=== PATIENT | female | born 1990 | race Two or more races ===

== ENCOUNTER 2018-01-16 10:00 | Observation (INO) | payer MEDICAID ==
[2018-01-17] MEDS ORDERED: PREN-96 PO (13:22)
== END 2018-01-16 11:10 | disposition home or self-care (01) | DRG 566 ==
LOC: LDRP 10:00
PROVIDERS: ADMIT Obstetrics & Gynecology; ATTEND Obstetrics & Gynecology
DX: O62.9 Abnormality of forces of labor, unspecified (principal); O26.893 Other specified pregnancy related conditions, third trimester; N89.8 Other specified noninflammatory disorders of vagina; R10.9 Unspecified abdominal pain; Z3A.39 39 weeks gestation of pregnancy
CPT/HCPCS: 59025; 81002; G0378

== ENCOUNTER 2018-01-17 12:15 | Observation (INO) | payer MEDICAID ==
[2018-01-17] MEDS ORDERED: PREN-96 PO (13:22)
== END 2018-01-17 13:11 | disposition home or self-care (01) | DRG 566 ==
LOC: LDRP 12:15
PROVIDERS: ADMIT Obstetrics & Gynecology; ATTEND Obstetrics & Gynecology
DX: O36.8130 Decreased fetal movements, third trimester, not applicable or unspecified (principal); O26.893 Other specified pregnancy related conditions, third trimester; N89.8 Other specified noninflammatory disorders of vagina; O62.9 Abnormality of forces of labor, unspecified; Z3A.39 39 weeks gestation of pregnancy
CPT/HCPCS: 59025; 76818; 81002; G0378

== ENCOUNTER 2018-01-20 10:45 | Observation (INO) | payer MEDICAID ==
[~2018-01-20 10:45] MED LIST: PREN-96 PO
== END 2018-01-20 12:50 | disposition home or self-care (01) | DRG 566 ==
LOC: LDRP 10:45
PROVIDERS: ADMIT Specialist; ATTEND Specialist
DX: O48.0 Post-term pregnancy (principal); Z3A.40 40 weeks gestation of pregnancy
CPT/HCPCS: 59025; 76805; 76818; 81002; G0378

== ENCOUNTER 2018-01-22 05:52 | Inpatient (IN) | payer MEDICAID ==
[~2018-01-22] VITALS: Ht 154.9 cm; Wt 70.3 kg
[2018-01-22] MEDS: LACTATED RINGER'S 1,000 ML IV SCH ×2 (06:11→11:15)
[2018-01-22] MEDS ORDERED: WITCH HAZEL-GLYCERIN PAD TOP PRN (06:15)
[2018-01-22] MEDS ORDERED: DERMOPLAST 60ML BOTTLE TOP PRN (06:15)
[2018-01-22] MEDS ORDERED: PHISODERM TOP SOLN 240ML BTL TOP ONE (06:15)
[2018-01-22] MEDS ORDERED: LIDOCAINE 2% (LOCAL ANESTH.) PF 5ml SDV IJ ONE (06:15)
[2018-01-22] MEDS ORDERED: PROMETHAZINE HCL 25 MG/ML 1ML IV PRN (06:15)
[2018-01-22] MEDS ORDERED: NALBUPHINE HCL 10 MG/1ml INJECTION IV PRN (06:15)
[2018-01-22 06:52] LABS: Basophils # (auto) 0.1 uL; Basophils % (auto) 0.7 % (0.0-2.0); Eosinophils # (auto) 0.1 uL; Eosinophils % (auto) 1.1 % (0.0-7.0); Hematocrit 39.8 % (36.0-46.0); Hemoglobin 13.7 g/dL (12.2-16.2); Lymphocytes # (auto) 1.9 uL; Lymphocytes % (auto) 23.1 % (10.0-50.0); Mean Corpuscular Hemoglobin 33.6 pg (28.0-32.0); Mean Corpuscular Hgb Conc. 34.5 g/dL (32.0-36.0); Mean Corpuscular Volume 97.5 fL (80.0-100.0); Monocytes # (auto) 0.7 uL; Neutrophils # (auto) 5.3 uL; Neutrophils % (auto) 66.1 % (37.0-80.0); Nucleated Red Blood Cells % 0.1 %; Platelet Count (auto) 139 10^3/uL (140-450); Red Blood Cells 4.08 10^6/uL (4.0-5.20); Red Cell Distribution Width 12.9 % (11.8-14.3); White Blood Cell 8.1 10^3/uL (4.4-10.8)
[2018-01-22 07:15] LABS: INR 0.81 (0.9-1.15); Partial Thromboplastin Time 29.3 sec (23.78-33.04); Prothrombin Time 8.8 sec (9.27-12.13)
[2018-01-22 07:20] LABS: Albumin 2.6 g/dL (3.4-5.0); Bilirubin, Total 0.4 mg/dL (0.2-1.0); Total Protein 6.7 g/dL (6.4-8.2); Uric Acid 4.2 mg/dL (2.6-6.0)
[2018-01-22 08:55] LABS: Urine Bacteria NONE SEEN /hpf (None Seen); Urine Blood Negative /uL (Negative); Urine Specific Gravity 1.007 (1.001-1.035); Urine WBC <1 /hpf (0 - 5)
[2018-01-22] MEDS ORDERED: LACT. RINGERS/OXYTOCIN 20UNITS 1,000 ML IV SCH (09:22)
[2018-01-22] MEDS ORDERED: TERBUTALINE SULFATE 1 MG/ML 1ML VIAL SC ONE (09:30)
[2018-01-22] MEDS ORDERED: ACETAMINOPHEN 325 MG TAB PO PRN (15:00)
[2018-01-22] MEDS: DOCUSATE CALCIUM 240 MG CAP PO SCH (15:15)
[2018-01-22] MEDS ORDERED: DOCUSATE CALCIUM 240 MG CAP PO SCH (15:15)
[2018-01-22 19:00] VITALS: BP 93/55
[2018-01-22 23:00] VITALS: BP 96/55
[2018-01-23] MEDS: IBUPROFEN 600 MG TAB PO PRN ×2 (02:28→13:22)
[2018-01-23 02:57] VITALS: BP 96/64
[2018-01-23 07:15] VITALS: BP 106/66
[2018-01-23] MEDS: DOCUSATE CALCIUM 240 MG CAP PO SCH (10:19)
[2018-01-23 11:12] VITALS: BP 104/68
[2018-01-23 14:40] VITALS: BP 106/70
[2018-01-23 19:30] VITALS: BP 106/82
[2018-01-23 23:30] VITALS: BP 111/71
[2018-01-24] MEDS: IBUPROFEN 600 MG TAB PO PRN (00:15)
[2018-01-24 03:08] VITALS: BP 97/63
[2018-01-24 06:43] VITALS: BP 105/71
== END 2018-01-24 09:30 | disposition home or self-care (01) | DRG 560 ==
LOC: LDRP 05:52
PROVIDERS: ADMIT Specialist; ATTEND Specialist
PROC: 10E0XZZ Delivery of Products of Conception, External Approach (ICD-10-PCS; principal; 2018-01-22)
PROC: 0W8NXZZ Division of Female Perineum, External Approach (ICD-10-PCS; 2018-01-22)
DX: O42.02 Full-term premature rupture of membranes, onset of labor within 24 hours of rupture (principal); Z37.0 Single live birth; Z3A.40 40 weeks gestation of pregnancy
CPT/HCPCS: 36415; 59025; 59409; 80053; 81001; 84550; 85025; 85610; 85730; 86850; 86900; 86901; 96365; 96366; J2590

== ENCOUNTER 2021-02-20 11:00 | Observation (INO) | payer MEDICAID | END 2021-02-20 12:54 | disposition home or self-care (01) | LOC: LDRP 11:00 | PROVIDERS: ADMIT Obstetrics & Gynecology; ATTEND Obstetrics & Gynecology | DX: O24.419 Gestational diabetes mellitus in pregnancy, unspecified control (principal); Z3A.31 31 weeks gestation of pregnancy | CPT/HCPCS: 59025; 81002; 82948; 82962; 94760; G0378 ==

== ENCOUNTER 2021-02-27 14:09 | Observation (INO) | payer MEDICAID | END 2021-02-27 16:15 | disposition home or self-care (01) | LOC: LDRP 14:09 | PROVIDERS: ADMIT Specialist; ATTEND Specialist | DX: O24.419 Gestational diabetes mellitus in pregnancy, unspecified control (principal); Z3A.32 32 weeks gestation of pregnancy | CPT/HCPCS: 59025; 76818; 81002; 82948; 82962; 94760; G0378 ==

== ENCOUNTER 2021-03-06 10:50 | Observation (INO) | payer MEDICAID | END 2021-03-06 13:21 | disposition home or self-care (01) | LOC: LDRP 10:50 | PROVIDERS: ADMIT Obstetrics & Gynecology; ATTEND Obstetrics & Gynecology | DX: O24.419 Gestational diabetes mellitus in pregnancy, unspecified control (principal); Z3A.33 33 weeks gestation of pregnancy | CPT/HCPCS: 59025; 76818; 81002; 82962; 94760; G0378 ==

== ENCOUNTER 2021-03-13 10:20 | Observation (INO) | payer MEDICAID | END 2021-03-13 11:39 | disposition home or self-care (01) | LOC: LDRP 10:20 | PROVIDERS: ADMIT Obstetrics & Gynecology; ATTEND Obstetrics & Gynecology | DX: O24.419 Gestational diabetes mellitus in pregnancy, unspecified control (principal); Z3A.34 34 weeks gestation of pregnancy | CPT/HCPCS: 59025; 76818; 81002; 82948; 82962; G0378 ==

== ENCOUNTER 2021-03-20 09:17 | Observation (INO) | payer MEDICAID | END 2021-03-20 13:10 | disposition home or self-care (01) | LOC: LDRP 09:17 | PROVIDERS: ADMIT Specialist; ATTEND Specialist | DX: O24.419 Gestational diabetes mellitus in pregnancy, unspecified control (principal); O60.03 Preterm labor without delivery, third trimester; Z3A.35 35 weeks gestation of pregnancy | CPT/HCPCS: 59025; 76818; 81002; 82962; G0378 ==

== ENCOUNTER 2021-03-27 10:43 | Observation (INO) | payer MEDICAID | END 2021-03-27 12:40 | disposition home or self-care (01) | LOC: LDRP 10:43 | PROVIDERS: ADMIT Obstetrics & Gynecology; ATTEND Obstetrics & Gynecology | DX: O60.03 Preterm labor without delivery, third trimester (principal); Z3A.36 36 weeks gestation of pregnancy | CPT/HCPCS: 59025; 76818; 81002; 94760; G0378 ==

== ENCOUNTER 2021-04-03 10:58 | Observation (INO) | payer MEDICAID ==
[~2021-04-03] VITALS: Ht 152.4 cm; Wt 68.5 kg
== END 2021-04-03 13:25 | disposition home or self-care (01) ==
LOC: LDRP 10:58
PROVIDERS: ADMIT Obstetrics & Gynecology; ATTEND Obstetrics & Gynecology
DX: O24.419 Gestational diabetes mellitus in pregnancy, unspecified control (principal); O60.03 Preterm labor without delivery, third trimester; Z3A.37 37 weeks gestation of pregnancy
CPT/HCPCS: 59025; 76818; 81002; 82948; 82962; G0378

== ENCOUNTER 2021-04-10 11:30 | Observation (INO) | payer MEDICAID ==
[~2021-04-10] VITALS: Ht 152.4 cm; Wt 68.9 kg
== END 2021-04-10 13:36 | disposition home or self-care (01) ==
LOC: LDRP 11:30
PROVIDERS: ADMIT Obstetrics & Gynecology; ATTEND Obstetrics & Gynecology
DX: O24.419 Gestational diabetes mellitus in pregnancy, unspecified control (principal); Z3A.38 38 weeks gestation of pregnancy
CPT/HCPCS: 59025; 76818; 81002; 82962; 94760; G0378

== ENCOUNTER 2021-04-14 21:50 | Observation (INO) | payer MEDICAID | END 2021-04-14 23:09 | disposition home or self-care (01) | LOC: LDRP 21:50 → UNDOADMOB 21:50 → LDRP 22:05 | PROVIDERS: ADMIT Obstetrics & Gynecology; ATTEND Obstetrics & Gynecology | DX: O62.9 Abnormality of forces of labor, unspecified (principal); O24.419 Gestational diabetes mellitus in pregnancy, unspecified control; Z3A.39 39 weeks gestation of pregnancy | CPT/HCPCS: 59025; 81002; 82948; 82962; 94760; G0378; G0379 ==

== ENCOUNTER 2021-04-15 08:24 | Inpatient (IN) | payer MEDICAID ==
[2021-04-15] MEDS ORDERED: DERMOPLAST 60ML BOTTLE TOP PRN (08:45)
[2021-04-15] MEDS ORDERED: PROMETHAZINE HCL 25 MG/ML 1ML IV PRN (08:45)
[2021-04-15] MEDS ORDERED: BUTORPHANOL TARTRATE 2 MG/1 ML VIAL IV PRN ×2 (08:45)
[2021-04-15] MEDS ORDERED: LACTATED RINGER'S 1,000 ML IV SCH ×2 (08:45→09:15)
[2021-04-15] MEDS ORDERED: LIDOCAINE 2%HCL (LOCAL ANESTH.) INJ 20ML MDV IJ PRN (08:45)
[2021-04-15] MEDS ORDERED: LACT. RINGERS/OXYTOCIN 20UNITS 500 ML IV ONE ×2 (09:30→10:00)
[2021-04-15 09:49] LABS: Basophils # (auto) 0 10 ^3/uL (0-0.2); Basophils % (auto) 0.3 % (0.0-2.0); Eosinophils # (auto) 0 10 ^3/uL (0-0.8); Eosinophils % (auto) 0.2 % (0.0-7.0); Hematocrit 41.1 % (36.0-46.0); Hemoglobin 14.2 g/dL (12.2-16.2); Lymphocytes # (auto) 1.4 10 ^3/uL (0.4-5.4); Lymphocytes % (auto) 11.3 % (10.0-50.0); Mean Corpuscular Hemoglobin 32.5 pg (28.0-32.0); Mean Corpuscular Hgb Conc. 34.7 g/dL (32.0-36.0); Mean Corpuscular Volume 93.8 fL (80.0-100.0); Monocytes # (auto) 0.6 10 ^3/uL (0-1.3); Monocytes % (auto) 5.2 % (0.0-12.0); Neutrophils # (auto) 10.4 10 ^3/uL (1.6-8.6); Nucleated Red Blood Cells % 0.1 %; Red Blood Cells 4.38 10^6/uL (4.0-5.20); Red Cell Distribution Width 12.7 % (11.8-14.3); White Blood Cell 12.5 10^3/uL (4.4-10.8)
[2021-04-15 09:52] LABS: Urine Bacteria NONE SEEN /hpf (None Seen); Urine Blood 2+ /uL (Negative); Urine Specific Gravity 1.022 (1.001-1.035); Urine WBC 54 /hpf (0 - 5)
[2021-04-15 10:07] LABS: Albumin 2.7 g/dL (3.4-5.0); Calcium 9.5 mg/dL (8.5-10.1); Potassium 3.9 mmol/L (3.5-5.1)
[2021-04-15 10:12] LABS: BUN/Creatinine Ratio 18.1; Bilirubin, Total 0.4 mg/dL (0.2-1.0); INR 0.9 (0.9-1.15); Partial Thromboplastin Time 27.3 sec (23.6-33.0); Total Protein 7.4 g/dL (6.4-8.2)
[2021-04-15 10:12] LABS: Alcohol, Urine < 3.0 mg/dL (0-10); Amphetamine Screen, Urine NEGATIVE (NEGATIVE); Barbiturate Scree,Urine NEGATIVE (NEGATIVE); Benzodiazephine Screen, Urine NEGATIVE (NEGATIVE); Cannabinoid Screen, Urine NEGATIVE (NEGATIVE); Cocaine Screen, Urine NEGATIVE (NEGATIVE); Opiate Scree,Urine NEGATIVE (NEGATIVE); Phencyclidine Screen, Urine NEGATIVE (NEGATIVE)
[2021-04-15] MEDS ORDERED: ACETAMINOPHEN 325 MG TAB PO PRN (12:30)
[2021-04-15] MEDS: IBUPROFEN 600 MG TAB PO PRN ×2 (13:26→21:39)
[2021-04-15 14:58] VITALS: BP 107/70
[2021-04-15] MEDS: PHISODERM TOP SOLN 240ML BTL TOP PRN (17:39)
[2021-04-15] MEDS: WITCH HAZEL-GLYCERIN PAD TOP PRN (17:40)
[2021-04-15 19:18] VITALS: BP 104/64
[2021-04-15 22:56] VITALS: BP 102/62
[2021-04-16] MEDS: IBUPROFEN 600 MG TAB PO PRN ×3 (02:54→14:18)
[2021-04-16 02:56] VITALS: BP 93/50
[2021-04-16 06:30] VITALS: BP 101/63
[2021-04-16 07:07] LABS: RPR Non Reactive (Non Reactive)
[2021-04-16 11:14] VITALS: BP 115/72
[2021-04-16] MEDS: PHISODERM TOP SOLN 240ML BTL TOP PRN (14:19)
[2021-04-16] MEDS: WITCH HAZEL-GLYCERIN PAD TOP PRN (14:19)
[2021-04-16 14:30] VITALS: BP 108/64
== END 2021-04-16 15:00 | disposition home or self-care (01) | DRG 560 ==
LOC: LDRP 08:24 → OBSVTOIN 08:28 → LDRP 08:30
PROVIDERS: ADMIT Obstetrics & Gynecology; ATTEND Obstetrics & Gynecology
PROC: 10E0XZZ Delivery of Products of Conception, External Approach (ICD-10-PCS; principal; 2021-04-15)
PROC: 0KQM0ZZ Repair Perineum Muscle, Open Approach (ICD-10-PCS; 2021-04-15)
DX: O70.1 Second degree perineal laceration during delivery (principal); Z37.0 Single live birth; Z20.822 Contact with and (suspected) exposure to COVID-19; Z3A.39 39 weeks gestation of pregnancy
CPT/HCPCS: 36415; 59025; 59409; 80053; 80307; 81001; 81002; 82948; 82962; 85025; 85610; 85730; 86592; 86850; 86900; 86901; 87426; 94760; 96360; 96361; 96365; 96366; G0378; J2590

== ENCOUNTER → 2023-03-30 | Outpatient (CLI) | payer MEDICAID ==
[2023-03-30 11:41] LABS: Basophils # (auto) 0 10 ^3/uL (0-0.2); Basophils % (auto) 0.4 % (0.0-2.0); Eosinophils # (auto) 0.1 10 ^3/uL (0-0.8); Eosinophils % (auto) 1.7 % (0.0-7.0); Hematocrit 41.7 % (36.0-46.0); Hemoglobin 14.1 g/dL (12.2-16.2); Lymphocytes # (auto) 1.6 10 ^3/uL (0.4-5.4); Mean Corpuscular Hemoglobin 31.4 pg (28.0-32.0); Mean Corpuscular Hgb Conc. 33.8 g/dL (32.0-36.0); Mean Corpuscular Volume 92.8 fL (80.0-100.0); Monocytes # (auto) 0.4 10 ^3/uL (0-1.3); Monocytes % (auto) 5.4 % (0.0-12.0); Neutrophils # (auto) 5.4 10 ^3/uL (1.6-8.6); Neutrophils % (auto) 71.5 % (37.0-80.0); Red Cell Distribution Width 12.2 % (11.8-14.3); White Blood Cell 7.5 10^3/uL (4.4-10.8)
[2023-03-30 13:27] LABS: Alcohol, Urine < 3.0 mg/dL (0-10); Amphetamine Screen, Urine NEGATIVE (NEGATIVE); Barbiturate Scree,Urine NEGATIVE (NEGATIVE); Benzodiazephine Screen, Urine NEGATIVE (NEGATIVE); Cannabinoid Screen, Urine NEGATIVE (NEGATIVE)
[2023-03-30 13:49] LABS: Cocaine Screen, Urine NEGATIVE (NEGATIVE); Opiate Scree,Urine NEGATIVE (NEGATIVE); Phencyclidine Screen, Urine NEGATIVE (NEGATIVE)
[2023-03-31 06:06] LABS: RPR Non Reactive (Non Reactive)
[2023-03-31 10:06] LABS: Treponema Pallidum Ab LC Non Reactive (Non Reactive)
[2023-04-01 05:08] LABS: Chlamydia Trachomatis, NAA Negative (Negative); Neisseria gonorrhoeae, NAA Negative (Negative)
[2023-04-01 11:07] LABS: QuantiFERON-TB Gold Plus Negative (Negative)
[2023-04-01 20:06] LABS: Treponema pallidum Ab (FTA-Ab) Non Reactive (Non Reactive)
== END | disposition home or self-care (01) ==
LOC: LAB 10:30
PROVIDERS: ATTEND Obstetrics & Gynecology
DX: Z34.80 Encounter for supervision of other normal pregnancy, unspecified trimester (principal); Z31.430 Encounter of female for testing for genetic disease carrier status for procreative management; N39.0 Urinary tract infection, site not specified; Z20.1 Contact with and (suspected) exposure to tuberculosis; G56.00 Carpal tunnel syndrome, unspecified upper limb; Z3A.00 Weeks of gestation of pregnancy not specified
CPT/HCPCS: 36415; 80307; 83036; 84112; 84144; 84702; 85025; 86592; 86703; 86762; 86850; 86900; 86901; 87086; 87340

== ENCOUNTER → 2023-08-13 | Outpatient (CLI) | payer MEDICAID ==
[2023-08-13 10:45] LABS: Basophils # (auto) 0 10 ^3/uL (0-0.2); Basophils % (auto) 0.4 % (0.0-2.0); Eosinophils # (auto) 0.2 10 ^3/uL (0-0.8); Eosinophils % (auto) 2.1 % (0.0-7.0); Hematocrit 41.3 % (36.0-46.0); Lymphocytes # (auto) 1.5 10 ^3/uL (0.4-5.4); Lymphocytes % (auto) 19.1 % (10.0-50.0); Mean Corpuscular Hemoglobin 31.8 pg (28.0-32.0); Mean Corpuscular Volume 93.5 fL (80.0-100.0); Monocytes # (auto) 0.6 10 ^3/uL (0-1.3); Monocytes % (auto) 7.2 % (0.0-12.0); Neutrophils # (auto) 5.6 10 ^3/uL (1.6-8.6); Neutrophils % (auto) 71.2 % (37.0-80.0); Red Blood Cells 4.41 10^6/uL (4.0-5.20); Red Cell Distribution Width 12.3 % (11.8-14.3); White Blood Cell 7.9 10^3/uL (4.4-10.8)
[2023-08-14 07:06] LABS: Treponema Pallidum Ab LC Non Reactive (Non Reactive)
[2023-08-14 09:06] LABS: RPR Non Reactive (Non Reactive)
== END | disposition home or self-care (01) ==
LOC: LAB 10:26
PROVIDERS: ATTEND Obstetrics & Gynecology
DX: Z34.80 Encounter for supervision of other normal pregnancy, unspecified trimester (principal); Z3A.00 Weeks of gestation of pregnancy not specified
CPT/HCPCS: 36415; 84112; 85025; 86592

== ENCOUNTER 2023-08-16 21:37 | Observation (INO) | payer MEDICAID ==
[~2023-08-16] VITALS: Ht 154.9 cm; Wt 69.4 kg
[2023-08-16 22:47] LABS: Fern Testing Negative
== END 2023-08-16 23:19 | disposition home or self-care (01) ==
LOC: LDRP 21:37
PROVIDERS: ADMIT Obstetrics & Gynecology; ATTEND Obstetrics & Gynecology
DX: O42.913 Preterm premature rupture of membranes, unspecified as to length of time between rupture and onset of labor, third trimester (principal); O26.893 Other specified pregnancy related conditions, third trimester; R10.30 Lower abdominal pain, unspecified; Z3A.35 35 weeks gestation of pregnancy
CPT/HCPCS: 59025; 76805; 81002; 84112; 94760; G0378; Q0114

== ENCOUNTER 2023-09-14 11:42 | Inpatient (IN) | payer MEDICAID ==
[~2023-09-14] VITALS: Ht 154.9 cm; Wt 70.8 kg
[2023-09-14] MEDS ORDERED: BUTORPHANOL TARTRATE 2 MG/1 ML VIAL IV PRN ×2 (14:30)
[2023-09-14] MEDS ORDERED: PENICILLIN G POT 5MIL/D5 50ML 50 ML IV ONE (14:30)
[2023-09-14] MEDS ORDERED: DERMOPLAST 60ML BOTTLE TOP PRN (14:30)
[2023-09-14] MEDS ORDERED: WITCH HAZEL-GLYCERIN PAD TOP PRN (14:30)
[2023-09-14] MEDS ORDERED: LIDOCAINE 2%HCL (LOCAL ANESTH.) INJ 20ML MDV IJ PRN (14:30)
[2023-09-14] MEDS ORDERED: PHISODERM TOP SOLN 240ML BTL TOP PRN (14:30)
[2023-09-14] MEDS ORDERED: PROMETHAZINE HCL 25 MG/ML 1ML IV PRN (14:30)
[2023-09-14] MEDS ORDERED: LACT. RINGERS/OXYTOCIN 20UNITS 500 ML IV ONE ×2 (14:45→15:15)
[2023-09-14 15:18] LABS: Urine Epithelial Cast None Seen /hpf (<5)
[2023-09-14 15:19] LABS: Basophils # (auto) 0 10 ^3/uL (0-0.2); Basophils % (auto) 0.4 % (0.0-2.0); Eosinophils # (auto) 0.1 10 ^3/uL (0-0.8); Eosinophils % (auto) 0.9 % (0.0-7.0); Hematocrit 40.6 % (36.0-46.0); Hemoglobin 13.7 g/dL (12.2-16.2); Lymphocytes # (auto) 1.9 10 ^3/uL (0.4-5.4); Mean Corpuscular Hemoglobin 31.6 pg (28.0-32.0); Mean Corpuscular Hgb Conc. 33.7 g/dL (32.0-36.0); Mean Corpuscular Volume 93.7 fL (80.0-100.0); Monocytes # (auto) 0.4 10 ^3/uL (0-1.3); Neutrophils # (auto) 4.9 10 ^3/uL (1.6-8.6); Neutrophils % (auto) 66.7 % (37.0-80.0); Nucleated Red Blood Cells % 0.1 %; Red Blood Cells 4.34 10^6/uL (4.0-5.20); Red Cell Distribution Width 13.1 % (11.8-14.3); White Blood Cell 7.3 10^3/uL (4.4-10.8)
[2023-09-14 15:35] LABS: Alanine Aminotransferase 17 U/L (7-40); Albumin 3.9 g/dL (3.2-4.8); Alkaline Phosphatase 198 U/L (46-116); Anion Gap 8 (5-15); Aspartate Aminotransferase 22 U/L (13-40); BUN/Creatinine Ratio 14.5 (10.0-20.0); Blood Urea Nitrogen 8 mg/dL (9-23); Calcium 9.3 mg/dL (8.5-10.1); Carbon Dioxide 20 mmol/L (20-30); Chloride 108 mmol/L (98-107); Glucose 75 mg/dL (74-106); Potassium 3.7 mmol/L (3.5-5.1); Sodium 136 mmol/L (136-145)
[2023-09-14 15:36] LABS: Bilirubin, Total 0.5 mg/dL (0.2-1.0); Total Protein 6.5 g/dL (5.7-8.2)
[2023-09-14 15:39] LABS: Amphetamine Screen, Urine Neg (NEGATIVE); Barbiturate Scree,Urine Neg (NEGATIVE); Benzodiazephine Screen, Urine Neg (NEGATIVE); Cocaine Screen, Urine Neg (NEGATIVE)
[2023-09-14 15:40] LABS: Cannabinoid Screen, Urine Neg (NEGATIVE); Opiate Scree,Urine Neg (NEGATIVE); Phencyclidine Screen, Urine Neg (NEGATIVE)
[2023-09-14 15:44] LABS: INR 0.91 (0.9-1.15); Prothrombin Time 9.6 sec (9.3-11.8)
[2023-09-14 15:47] LABS: Urine Bacteria MANY /hpf (None Seen); Urine Blood Negative /uL (Negative); Urine Clarity Clear (Clear); Urine Color Colorless (Yellow); Urine Protein, UAD Negative (Negative); Urine Specific Gravity 1.006 (1.001-1.035); Urine Urobilinogen Normal (Negative); Urine WBC 1 /hpf (0 - 5); Urine pH 6.5 (5.0-8.0)
[2023-09-14] MEDS: LACTATED RINGER'S 1,000 ML IV SCH ×2 (17:51→22:44)
[2023-09-14] MEDS ORDERED: PENICILLIN G POTASSIUM 2,500,000 UNITS in D5W 5% 50 ML IV SCH (18:30)
[2023-09-14] MEDS: miSOPROStol 50 MCG per PRE-CUT 1/2 TAB PO PRN (19:02)
[2023-09-14] MEDS ORDERED: CARBOPROST TROMETHAMINE 250 MCG/1ML VIAL IM PRN (22:15)
[2023-09-14] MEDS ORDERED: MINERAL OIL TOPICAL 10ml TOP PRN (22:15)
[2023-09-14] MEDS ORDERED: diphenhdrAMINE HCL 50 MG/1 ML VL IV PRN (22:15)
[2023-09-14] MEDS ORDERED: URSODIOL 300 MG CAP PO SCH (22:15)
[2023-09-14] MEDS ORDERED: miSOPROStol 100 mcg TAB SL PRN (22:15)
[2023-09-14] MEDS ORDERED: fentaNYL CITRATE 100 MCG/2 ML VL IV PRN (22:15)
[2023-09-14] MEDS ORDERED: ONDANSETRON HCL 4 MG/2 ML VIAL IV PRN (22:15)
[2023-09-14] MEDS ORDERED: ACETAMINOPHEN 325 MG TAB PO PRN (22:15)
[2023-09-14] MEDS ORDERED: PROMETHAZINE HCL 25 MG/ML 1ML IM PRN (22:15)
[2023-09-14] MEDS ORDERED: METHYLERGONOVINE MALEATE 0.2 MG/ML AMP IM PRN (22:15)
[2023-09-14] MEDS ORDERED: TRANEXAMIC ACID 1,000 MG in SODIUM CHL 0.9% 100 ML IV PRN (22:15)
[2023-09-15] MEDS ORDERED: DIPHENOXYLATE W/ATROPINE 2.5 MG TAB PO PRN
[2023-09-15] MEDS: miSOPROStol 50 MCG per PRE-CUT 1/2 TAB PO PRN (00:36)
[2023-09-15] MEDS ORDERED: ePHEDrine SULFATE 50 MG/ML AMP IV ONE (01:45)
[2023-09-15] MEDS ORDERED: LACTATED RINGER'S 1,000 ML IV ONE (01:45)
[2023-09-15] MEDS ORDERED: ROPIVACAINE HCL 100 ML ONE (01:47)
[2023-09-15] MEDS: LACTATED RINGER'S 1,000 ML IV SCH (02:22)
[2023-09-15] MEDS ORDERED: PENICILLIN G POTASSIUM 2,500,000 UNITS in D5W 5% 50 ML IV SCH (06:50)
[2023-09-15 08:06] LABS: RPR Non Reactive (Non Reactive)
[2023-09-15] MEDS ORDERED: ACETAMINOPHEN 325 MG TAB PO PRN (08:15)
[2023-09-15] MEDS ORDERED: LEVE500T40 PO (10:45)
[2023-09-15] MEDS ORDERED: FLUO60TA7 PO (10:45)
[2023-09-15 11:00] VITALS: BP 112/70; PULSE 69; RESP 16; TEMP 98; O2SAT 96
[2023-09-15 15:00] VITALS: BP 102/93; PULSE 82; RESP 16; TEMP 98.7; O2SAT 96
[2023-09-15] MEDS: IBUPROFEN 600 MG TAB PO PRN (18:50)
[2023-09-15 19:13] VITALS: BP 101/59; PULSE 93; RESP 16; TEMP 98.5; O2SAT 95
[2023-09-15 23:25] VITALS: BP 119/73; PULSE 82; RESP 16; TEMP 98.4; O2SAT 95
[2023-09-16] VITALS (7 sets, daily range): BP systolic 101–113; BP diastolic 71–80; PULSE 78–96; RESP 13–18; TEMP 97.9–98.4; O2SAT 95–97
[2023-09-16] MEDS ORDERED: DOCU-94 PO (00:01)
[2023-09-16] MEDS ORDERED: IBU600T PO (00:01)
[2023-09-16] MEDS ORDERED: DOCUSATE SOD 100 MG CAP PO ONE (00:45)
[2023-09-16] MEDS: IBUPROFEN 600 MG TAB PO PRN (07:54)
[2023-09-17 03:00] VITALS: BP 106/67; PULSE 74; RESP 18; TEMP 97.7; O2SAT 97
[2023-09-17] MEDS: IBUPROFEN 600 MG TAB PO PRN (04:41)
[2023-09-17 07:19] VITALS: BP 106/72; PULSE 72; RESP 17; TEMP 98.3; O2SAT 97
[2023-09-17 10:55] VITALS: BP 110/74; PULSE 70; RESP 17; TEMP 98.3; O2SAT 97
[2023-09-17 14:41] VITALS: BP 104/71; PULSE 73; RESP 17; TEMP 98.4; O2SAT 96
[2023-09-17] MEDS ORDERED: ACETAMINOPHEN IV 1000 MG/100ML (10MG/ML) IV PRN (18:30)
[2023-09-17 19:06] LABS: Treponema pallidum Ab (FTA-Ab) Non Reactive (Non Reactive)
[2023-09-17 19:10] VITALS: BP 104/69; PULSE 81; RESP 16; TEMP 98.6; O2SAT 96
[2023-09-17 20:15] VITALS: BP 104/69; PULSE 81; RESP 16; TEMP 98.6; O2SAT 96
== END 2023-09-17 20:05 | disposition home or self-care (01) | DRG 560 ==
LOC: LDRP 11:42 → UNDOADMOB 11:42 → LDRP 12:01 → OBSVTOIN 14:25
PROVIDERS: ADMIT Obstetrics & Gynecology; ATTEND Nurse Practitioner Women's Health
PROC: 0KQM0ZZ Repair Perineum Muscle, Open Approach (ICD-10-PCS; principal; 2023-09-15)
PROC: 10E0XZZ Delivery of Products of Conception, External Approach (ICD-10-PCS; 2023-09-15)
PROC: 3E0R3BZ Introduction of Anesthetic Agent into Spinal Canal, Percutaneous Approach (ICD-10-PCS; 2023-09-15)
PROC: 00HU33Z Insertion of Infusion Device into Spinal Canal, Percutaneous Approach (ICD-10-PCS; 2023-09-15)
DX: O26.643 Intrahepatic cholestasis of pregnancy, third trimester (principal); Z37.0 Single live birth; K76.89 Other specified diseases of liver; O36.8130 Decreased fetal movements, third trimester, not applicable or unspecified; O70.1 Second degree perineal laceration during delivery; O99.824 Streptococcus B carrier state complicating childbirth; Z3A.40 40 weeks gestation of pregnancy
CPT/HCPCS: 36415; 59409; 62282; 76818; 80053; 80307; 81001; 85025; 85610; 85730; 86592; 86850; 86900; 86901; 94760; 96360; 96361; 96365; 96366; G0378; J2540; J2590; J7060

== ENCOUNTER → 2024-11-22 | Outpatient (CLI) | payer MEDICAID ==
[~2024-11-22] MED LIST changes: +DOCU-94 PO; +FLUO60TA7 PO; +IBU600T PO; +LEVE500T40 PO
[2024-11-22 12:04] LABS: Basophils # (auto) 0.1 10 ^3/uL (0-0.2); Basophils % (auto) 0.7 % (0.0-2.0); Eosinophils # (auto) 0.1 10 ^3/uL (0-0.8); Eosinophils % (auto) 1.2 % (0.0-7.0); Hematocrit 43.1 % (36.0-46.0); Hemoglobin 14.9 g/dL (12.2-16.2); Lymphocytes % (auto) 26.8 % (10.0-50.0); Mean Corpuscular Hgb Conc. 34.6 g/dL (32.0-36.0); Mean Corpuscular Volume 92.3 fL (80.0-100.0); Monocytes # (auto) 0.4 10 ^3/uL (0-1.3); Monocytes % (auto) 4.8 % (0.0-12.0); Neutrophils % (auto) 66.5 % (37.0-80.0); Nucleated Red Blood Cells % 0.1 %; Platelet Count (auto) 212 10^3/uL (140-450); Red Blood Cells 4.67 10^6/uL (4.0-5.20); Red Cell Distribution Width 12.4 % (11.8-14.3); White Blood Cell 7.5 10^3/uL (4.4-10.8)
[2024-11-22 12:29] LABS: Alanine Aminotransferase 25 U/L (7-40); Alkaline Phosphatase 82 U/L (46-116); Anion Gap 10 (5-15); Aspartate Aminotransferase 18 U/L (13-40); BUN/Creatinine Ratio 12.3 (10.0-20.0); Calcium 10.2 mg/dL (8.7-10.4); Carbon Dioxide 23 mmol/L (20-31); Chloride 103 mmol/L (98-107); Cholesterol 185 mg/dL (< 200); Glucose 85 mg/dL (74-106); LDL Cholesterol 93 mg/dL (< 100); Potassium 3.8 mmol/L (3.5-5.1); Sodium 136 mmol/L (136-145); Total Protein 7.7 g/dL (5.7-8.2); Triglycerides 91 mg/dL (< 150)
[2024-11-22 12:30] LABS: Amphetamine Screen, Urine Neg (NEGATIVE); Barbiturate Scree,Urine Neg (NEGATIVE); Benzodiazephine Screen, Urine Neg (NEGATIVE); Bilirubin, Total 0.5 mg/dL (0.2-1.0); Opiate Scree,Urine Neg (NEGATIVE); Phencyclidine Screen, Urine Neg (NEGATIVE)
[2024-11-22 12:31] LABS: Albumin 4.9 g/dL (3.2-4.8); Blood Urea Nitrogen 7 mg/dL (9-23); Cannabinoid Screen, Urine Neg (NEGATIVE); Cocaine Screen, Urine Neg (NEGATIVE); HDL Cholesterol 76 mg/dL (40-59); Thyroid Stimulating Hormone 0.6 uIU/mL (0.55-4.78)
[2024-11-22 13:02] LABS: Beta HCG, Quantitative 43744.6 mIU/mL (1.5-4.2)
[2024-11-23 08:07] LABS: Varicella Zoster IgG Antibody Non Reactive (Non Reactive)
[2024-11-23 23:07] LABS: Chlamydia Trachomatis, NAA Negative (Negative); Neisseria gonorrhoeae, NAA Negative (Negative)
== END | disposition home or self-care (01) ==
LOC: LAB 11:26
PROVIDERS: ATTEND Obstetrics & Gynecology
DX: O23.40 Unspecified infection of urinary tract in pregnancy, unspecified trimester (principal); Z31.430 Encounter of female for testing for genetic disease carrier status for procreative management; Z36.0 Encounter for antenatal screening for chromosomal anomalies; N39.0 Urinary tract infection, site not specified; Z3A.00 Weeks of gestation of pregnancy not specified
CPT/HCPCS: 36415; 80053; 80061; 80307; 83036; 84439; 84443; 84702; 85025; 86703; 86762; 86780; 86787; 86850; 86900; 86901; 87086; 87340; 87902

== ENCOUNTER → 2025-05-02 | Outpatient (CLI) | payer MEDICAID ==
[2025-05-02 11:41] LABS: Hematocrit 39.4 % (36.0-46.0); Hemoglobin 13.6 g/dL (12.2-16.2); Mean Corpuscular Hemoglobin 32.0 pg (28.0-32.0); Mean Corpuscular Volume 92.6 fL (80.0-100.0); Nucleated Red Blood Cells % 0.0 %
[2025-05-04 05:08] LABS: Chlamydia Trachomatis, NAA Negative (Negative); Neisseria gonorrhoeae, NAA Negative (Negative)
== END | disposition home or self-care (01) ==
LOC: LAB 11:12
PROVIDERS: ATTEND Obstetrics & Gynecology
DX: Z34.80 Encounter for supervision of other normal pregnancy, unspecified trimester (principal)
CPT/HCPCS: 36415; 85025; 86780

== ENCOUNTER 2025-05-08 10:15 | Observation (INO) | payer MEDICAID ==
--- NOTE | 2025-05-08 12:02 | DVH ---
CLINICAL HISTORY: Decreased movement. Fall injury. COMPARISON: US BIOPHYSICAL PROFILE on DOS: 09/14/23, BIOPHYSICAL PROFILE on DOS: 04/10/21, BIOPHYSICAL PROFILE on DOS: 04/03/21 TECHNIQUE: biophysical profile was performed. Transabdominal sonographic images of the fetus we re obtained. Transvaginal imaging was performed to evaluate the cervix. FINDINGS: The fetus is in cephalic position. heart rate measures 135 BPM. Amniotic fluid index measures 13.1 cm. The placenta is anterior in position without visualized evidence for previa or abru ption. There is a fluid collection along the periphery of the mid placenta measuring up to 5.1 x 0.7 x 3.0 cm with mild vascularity near its periphery. There is fluid collection within the mid placenta measuring 1.5 x 0.5 x 1.6 cm, most likely placental Ross. Cervix appears closed on transvaginal imag ing with cervical length of 3.6 cm. BPP profile is an overall score of 8/8, with 2/2 points for breathing, with at least one episode of breathing over a 30 second duration during a 30 minute observation, 2/2 points for m ovements, with 3 or more discrete body or limb movements, 2/2 points for tone, with one or more episodes of extremity extension with return to flexion, or opening and closing of hand, and 2/ 2 points for amniotic fluid, with at least 1 pocket of amniotic fluid that measures 2 cm in 2 perpend icular planes. IMPRESSION: 1. BPP score of 8/8. 2. Cervix appears closed with cervical length of 3.6 cm. 3. Fluid collection along the anterior periphery of the mid placenta. Given the history of fall inju ry, can not exclude small hematoma hematoma in this location. The patient was not in pain at the time of the examination. Correlation with clinical findings and close clinical and imaging follow-up sae mmended. 4. Smaller fluid collection within the mid placenta, possibly a placental ross.
--- NOTE | 2025-05-08 17:23 | DVHDS2 ---
Physician Discharge Progress N Final Diagnosis: s/p fall on 05/07/25 at 1700 well being established Operations or Procedures: Operations or Procedures S: 34yo IUP@35.6wks presents to OB triage with c/o DFM after a fall on 05/07/25 at 1700. Pt did not land on her abdomen, she just slipped and feels like she pulled a groin muscle. Denies UCs/LOF/VB/MARTINEZ/vision changes/RUQ pain. PNC with Dr. Montero, uncomplicated. O: VSS NST reactive per RN No VB and abdomen soft per RN A: 34yo IUP@35.6wks well being established P: D/C home FKC/PTL/PreE precautions reviewed Dr. Montero consulted, aware of SONO results, agrees with POC. f/u with Dr. Montero as scheduled tmrw 05/09/25 in office. Other Interventions Other Interventions [place] [id number] Ph: [phone] DIAGNOSTIC IMAGING Diagnostic Imaging Report : [id number] Signed PATIENT: YUNG NEVAREZ ACCT: [id number] UNIT: [id number] : 1990 LOC: RP ROOM / BED: TRIAGE3 / A AGE / SEX: 34 / F ADM STATUS: DIS IN SERVICE 1019 ORDERING PHYSICIAN: PEARL WHEAT CNM PROCEDURE(s): BPP - BIOPHYSICAL PROFILE REASON: Decrease Movement/ Fall ORDER NUMBER(s): [id number], ACCESSION NUMBER(s): [id number] CLINICAL HISTORY: Decreased movement. Fall injury. COMPARISON: US BIOPHYSICAL PROFILE on DOS: 09/14/23, BIOPHYSICAL PROFILE on DOS: 04/10/21, BIOPHYSICAL PROFILE on DOS: 04/03/21 TECHNIQUE: biophysical profile was performed. Transabdominal sonographic images of the fetus were obtained. Transvaginal imaging was performed to evaluate the cervix. FINDINGS: The fetus is in cephalic position. heart rate measures 135 BPM. Amniotic fluid index measures 13.1 cm. The placenta is anterior in position without visualized evidence for previa or abruption. There is a fluid collection along the periphery of the mid placenta measuring up to 5.1 x 0.7 x 3.0 cm with mild vascularity near its periphery. There is fluid collection within the mid placenta measuring 1.5 x 0.5 x 1.6 cm, most likely placental Ross. Cervix appears closed on transvaginal imaging with cervical length of 3.6 cm. BPP profile is an overall score of 8/8, with 2/2 points for breathing, with at least one episode of breathing over a 30 second duration during a 30 minute observation, 2/2 points for movements, with 3 or more discrete body or limb movements, 2/2 points for tone, with one or more episodes of extremity extension with return to flexion, or opening and closing of hand, and 2/2 points for amniotic fluid, with at least 1 pocket of amniotic fluid that measures 2 cm in 2 perpendicular planes. IMPRESSION: 1. BPP score of 8/8. 2. Cervix appears closed with cervical length of 3.6 cm. 3. Fluid collection along the anterior periphery of the mid placenta. Given the history of fall injury, can not exclude small hematoma hematoma in this location. The patient was not in pain at the time of the examination. Correlation with clinical findings and close clinical and imaging follow-up recommended. 4. Smaller fluid collection within the mid placenta, possibly a placental ross. ATED BY: MACY HEARN DO DICTATED DATE/TIME: 05/08/25 1200 SIGNED BY: MACY HEARN DO SIGNED DATE/TIME: 05/08/25 1200 CC: Condition on Discharge: Stable Disposition: Home Discharge Instructions: Diet: Regular Activity: No Restrictions, As Tolerated Medications: see med list Follow Up Care: Specialist: f/u with Dr. Montero in office on 05/08/25 Discharge Statement: "Patient was advised to return to the ER or call 911 if any headaches, dizziness, shortness of breath, chest pain, abdominal pain, bleeding, fevers, or worsening of medical condition. Patient was counseled about treatment plan, medications, possible side effects, patientverbalized understanding. All questions were answered to the best of my ability. This discharge took greater then 30 minutes in planning, reviewing documentation, counseling the patient, and discussing with other team members." Visit Coding OBGYN Date of Service: May 08, 2025 Billing Provider: PEARL WHEAT CNM STOCKROOM ATTENDANT Common Visit Codes: [id number] OBS CARE (HIGH) STOCKROOM ATTENDANT Procedure Codes: 95454-66- NON-STRESS TEST PEARL WHEAT CNM May 08, 2025 17:23
== END 2025-05-08 11:56 | disposition home or self-care (01) ==
LOC: LDRP 10:15
PROVIDERS: ADMIT Obstetrics & Gynecology; ATTEND Obstetrics & Gynecology
DX: Z36.89 Encounter for other specified antenatal screening (principal); Z98.890 Other specified postprocedural states; W01.0XXA Fall on same level from slipping, tripping and stumbling without subsequent striking against object, initial encounter; Y93.89 Activity, other specified; Y92.89 Other specified places as the place of occurrence of the external cause; Y99.8 Other external cause status
CPT/HCPCS: 59025; 76817; 76819; 81002; 94760; G0378

== ENCOUNTER 2025-05-09 11:23 | Outpatient (CLI) | payer MEDICAID ==
[2025-05-09 11:46] LABS: Hematocrit 40.3 % (36.0-46.0); Hemoglobin 13.6 g/dL (12.2-16.2); Mean Corpuscular Hemoglobin 31.6 pg (28.0-32.0); Mean Corpuscular Volume 93.7 fL (80.0-100.0); Nucleated Red Blood Cells % 0.0 %
[2025-05-10 16:07] LABS: Chlamydia Trachomatis, NAA Negative (Negative); Neisseria gonorrhoeae, NAA Negative (Negative)
== END 2025-05-09 17:00 | disposition home or self-care (01) ==
LOC: LAB 11:23
PROVIDERS: ATTEND Obstetrics & Gynecology
DX: Z34.80 Encounter for supervision of other normal pregnancy, unspecified trimester (principal); Z72.51 High risk heterosexual behavior; Z3A.00 Weeks of gestation of pregnancy not specified
CPT/HCPCS: 36415; 85025; 86780

== ENCOUNTER 2025-05-18 11:05 | Observation (INO) | payer MEDICAID ==
[2025-05-18 11:50] LABS: Hematocrit 40.4 % (36.0-46.0); Hemoglobin 13.9 g/dL (12.2-16.2); Mean Corpuscular Hemoglobin 32.0 pg (28.0-32.0); Mean Corpuscular Volume 93.0 fL (80.0-100.0); Nucleated Red Blood Cells % 0.0 %
[2025-05-18 12:08] LABS: Alanine Aminotransferase 100 U/L (7-40); Albumin 3.7 g/dL (3.2-4.8); Alkaline Phosphatase 254 U/L (46-116); Anion Gap 10 (5-15); BUN/Creatinine Ratio 13.0 (10.0-20.0); Bilirubin, Total 0.7 mg/dL (0.2-1.0); Blood Urea Nitrogen 9 mg/dL (9-23); Calcium 9.3 mg/dL (8.7-10.4); Carbon Dioxide 22 mmol/L (20-31); Chloride 106 mmol/L (98-107); Potassium 4.0 mmol/L (3.5-5.1); Sodium 138 mmol/L (136-145); Total Protein 6.3 g/dL (5.7-8.2)
--- NOTE | 2025-05-18 12:22 | DVH ---
BIOPHYSICAL PROFILE HISTORY: cholestasis TECHNIQUE: Multiple transabdominal real-time grayscale sonographic images through the gravid uterus o f the fetus with duplex doppler color flow and M-mode spectral analysis FINDINGS: BIOPHYSICAL PROFILE: breathing score: 2 movement score: 2 tone score: 2 Quantitative MAIA score: 2 (MAIA: 16.4 cm.) Total score: 8/8 Single live fetus in cephalic presentation. heart rate 146 beats per minute. Anterior placenta without previa or abruption Biophysical profile score 8/8 corresponding to an OZZIE of 06/06/25 IMPRESSION: Biophysical profile score: 8/8
[2025-05-18 12:26] LABS: Glucose 81 mg/dL (74-106)
[2025-05-18] MEDS ORDERED: URSO300C2 PO (12:44)
--- NOTE | 2025-05-18 13:32 | DVHDS2 ---
Physician Discharge Progress N Final Diagnosis: cholestasis 37wks Operations or Procedures: Operations or Procedures nst reactive reviwed,sono Condition on Discharge: Good Disposition: Home Discharge Instructions: Diet: Regular Activity: No Restrictions, As Tolerated Follow Up/Referral: IOL 05/19/25 at 0900 Medications: na Follow Up Care: Specialist: 1d for ind Discharge Statement: "Patient was advised to return to the ER or call 911 if any headaches, dizziness, shortness of breath, chest pain, abdominal pain, bleeding, fevers, or worsening of medical condition. Patient was counseled about treatment plan, medications, possible side effects, patientverbalized understanding. All questions were answered to the best of my ability. This discharge took greater then 30 minutes in planning, reviewing documentation, counseling the patient, and discussing with other team members." Visit Coding OBGYN Date of Service: May 18, 2025 Billing Provider: FERNIE MOSHER DO CHIEF LEARNING OFFICER Common Visit Codes: [id number] OBS CARE (HIGH) CHIEF LEARNING OFFICER Procedure Codes: 57806-25- NON-STRESS TEST FERNIE MOSHER DO May 18, 2025 13:32
== END 2025-05-18 12:53 | disposition home or self-care (01) ==
LOC: LDRP 11:05
PROVIDERS: ADMIT Obstetrics & Gynecology; ATTEND Obstetrics & Gynecology
DX: O26.643 Intrahepatic cholestasis of pregnancy, third trimester (principal); K83.1 Obstruction of bile duct; Z3A.37 37 weeks gestation of pregnancy; Z98.890 Other specified postprocedural states
CPT/HCPCS: 36415; 59025; 76819; 80053; 81002; 85025; 94760; G0378

== ENCOUNTER 2025-05-19 02:28 | Inpatient (IN) | payer MEDICAID ==
[~2025-05-19] VITALS: Ht 154.9 cm; Wt 68.0 kg
[~2025-05-19 02:28] MED LIST changes: +URSO300C2 PO
[2025-05-19] MEDS ORDERED: BUTORPHANOL TARTRATE 2 MG/1 ML VIAL IV PRN ×2 (07:30)
[2025-05-19] MEDS ORDERED: PENICILLIN G POT 5MIL/D5 50ML 50 ML IV ONE (07:30)
[2025-05-19] MEDS ORDERED: LIDOCAINE 2%HCL (LOCAL ANESTH.) INJ 20ML MDV IJ PRN (07:30)
[2025-05-19 08:13] LABS: Hematocrit 39.7 % (36.0-46.0); Hemoglobin 13.6 g/dL (12.2-16.2); Mean Corpuscular Hemoglobin 31.8 pg (28.0-32.0); Mean Corpuscular Volume 92.9 fL (80.0-100.0); Nucleated Red Blood Cells % 0.1 %
[2025-05-19 08:25] LABS: INR 0.86 (0.9-1.15); Partial Thromboplastin Time 27.5 SEC (24.5-34.5); Prothrombin Time 9.3 sec (9.3-11.8)
[2025-05-19 08:35] LABS: Albumin 3.9 g/dL (3.2-4.8); Anion Gap 12 (5-15); BUN/Creatinine Ratio 13.8 (10.0-20.0); Blood Urea Nitrogen 9 mg/dL (9-23); Calcium 9.1 mg/dL (8.7-10.4); Chloride 106 mmol/L (98-107); Glucose 77 mg/dL (74-106); Potassium 3.9 mmol/L (3.5-5.1); Sodium 138 mmol/L (136-145); Total Protein 6.5 g/dL (5.7-8.2)
[2025-05-19 08:36] LABS: Amphetamine Screen, Urine Neg (NEGATIVE); Barbiturate Scree,Urine Neg (NEGATIVE); Benzodiazephine Screen, Urine Neg (NEGATIVE); Cannabinoid Screen, Urine Neg (NEGATIVE); Cocaine Screen, Urine Neg (NEGATIVE); Opiate Scree,Urine Neg (NEGATIVE); Phencyclidine Screen, Urine Neg (NEGATIVE)
[2025-05-19 08:36] LABS: Alanine Aminotransferase 133 U/L (7-40); Alkaline Phosphatase 271 U/L (46-116); Bilirubin, Total 0.7 mg/dL (0.2-1.0); Carbon Dioxide 20 mmol/L (20-31)
--- NOTE | 2025-05-19 09:08 | DVHHP ---
ADMIT DATE: 05/19/2025 CHIEF COMPLAINT: Here for induction of labor due to cholestasis of . HISTORY OF PRESENT ILLNESS: The patient is a 34-year-old 4, para 3 with EDC 06/06, estimated gestational age of 37+ weeks, admitted for cholestasis of . The patient was diagnosed yesterday with cholestasis. Liver enzymes were high. She was started on Actigall and brought in today for induction of labor. The patient denies having any rupture of membranes or vaginal bleeding. PAST MEDICAL HISTORY: None. PAST SURGICAL HISTORY: None. SOCIAL HISTORY: None. FAMILY HISTORY: None. OBSTETRIC AND GYNECOLOGIC HISTORY: Three normal vaginal deliveries. REVIEW OF SYSTEMS: Consistent with HPI. PHYSICAL EXAMINATION: VITAL SIGNS: Stable, afebrile. HEENT: Within normal limits. CARDIOVASCULAR: Regular rate and rhythm. LUNGS: Clear to auscultation. ABDOMEN: Gravid. Positive heart. PELVIC: Cervix closed, thick, high. EXTREMITIES: No clubbing, cyanosis, or edema. IMPRESSION: * Intrauterine at 37+ weeks. * Induction of labor for cholestasis of . PLAN: Admit. We will start with Cytotec. Informed consent obtained. DO KYLE Myers TID: [id number] RECEIPT: [id number]
[2025-05-19] MEDS: WITCH HAZEL-GLYCERIN PAD TOP PRN (09:40)
[2025-05-19] MEDS: URSODIOL 300 MG CAP PO SCH (09:40)
[2025-05-19] MEDS: DERMOPLAST 60ML BOTTLE TOP PRN (09:41)
[2025-05-19] MEDS: PHISODERM TOP SOLN 240ML BTL TOP PRN (09:41)
[2025-05-19] MEDS: LACTATED RINGER'S 1,000 ML IV SCH (09:43)
[2025-05-19] MEDS ORDERED: PENICILLIN G POTASSIUM 2,500,000 UNITS in D5W 5% 50 ML IV SCH (12:00)
--- NOTE | 2025-05-19 15:55 | DVHPN2 ---
Chief Complaints Patient reports: No new complaints Nursing reports: No new complaints Objective Medications Current Medications Medications (Trade) Dose Ordered Sig/Reese Route PRN Reason Start Time Stop Time Status Last Admin Benzocaine (Dermoplast) 1 applic PRN PRN TOP PERINEAL AREA DISCOMFORT 05/19/25 07:30 05/19/25 09:41 Butorphanol Tartrate (Stadol Injection) 1 mg Q4HPRN PRN IV MODERATE PAIN (4-6 PAIN SCALE) 05/19/25 07:30 Butorphanol Tartrate (Stadol Injection) 2 mg Q4HPRN PRN IV SEVERE PAIN (7-10 PAIN SCALE) 05/19/25 07:30 Lactated Ringer's 1,000 ml @ 125 mls/hr Q8H IV 05/19/25 07:30 05/19/25 09:43 Lidocaine HCl (Xylocaine) 20 ml ONCE PRN IJ PERINEAL AREA DISCOMFORT 05/19/25 07:30 Misoprostol (Cytotec) 50 mcg Q4HPRN PRN PO CERVICAL RIPENING 05/19/25 07:30 05/19/25 13:42 Penicillin G Potassium [id number] units/Dextrose 50 ml @ 100 mls/hr Q4H IV 05/19/25 12:00 Cancel Sodium Lauryl Sulfate (Phisoderm) 240 ml PRN PRN TOP PERINEAL AREA DISCOMFORT 05/19/25 07:30 05/19/25 09:41 Ursodiol (Actigall) 300 mg BID PO 05/19/25 10:00 05/19/25 09:40 Witch Rhianna (Tucks) 1 pad PRN PRN TOP PERINEAL AREA DISCOMFORT 05/19/25 07:30 05/19/25 09:40 Others VE UNCHANGED Studies Laboratory Tests 05/19/25 07:50 Test 05/19/25 07:50 Range/Units Serum Glucose 77 74-106 mg/dL Ass/Plan Assessment IOL FOR CHOLESTASIS Plan REC 2 CYTOTEC Visit Coding OBGYN Date of Service: May 19, 2025 Billing Provider: FERNIE MOSHER DO BOOKER Common Visit Codes: [id number] OBS CARE (HIGH) BOOKER Procedure Codes: 78107-08- NON-STRESS TEST FERNIE MOSHER DO May 19, 2025 15:55
[2025-05-19 16:36] LABS: Urine Protein, UAD Negative (Negative)
--- NOTE | 2025-05-19 23:55 | DVHPN2 ---
CNM Labor Progress Note Date and Time Seen Date Seen: May 19, 2025 Time Seen: 19:10 Subjective Patient reports: No new complaints Monitoring Method Monitoring Method: External Heart Rate Heart Rate Baseline: 135 Heart Rate Variability: Moderate Presence of FHR Accelerations: Yes Presence of FHR Decelerations: No Changes in Trends of Patterns: No Are all 5 Components of the FH: Yes Contractions Contractions Frequency: Other (2-3min) Duration of Contraction: 60 Contractions Intensity: Mild, Moderate Contractions Resting Tone: Relaxed Membranes Membranes: Intact Vaginal Exam Vag Exam Deferred: Yes Medications Medications - Pitocin: No Medication - Epidural: No Medication - Other Misoprostol Dose #3 given @ 1743 Lab Results Lab Results Current Medications Medications (Trade) Dose Ordered Sig/Reese Start Time Stop Time Status Last Admin Dose Admin Lactated Ringer's 1,000 ml @ 125 mls/hr Q8H 05/19/25 07:30 05/20/25 03:00 125 MLS/HR Edwin Moctezuma (Tucks) 1 pad PRN PRN 05/19/25 07:30 05/19/25 09:40 1 PAD Sodium Lauryl Sulfate (Phisoderm) 240 ml PRN PRN 05/19/25 07:30 05/19/25 09:41 240 ML Benzocaine (Dermoplast) 1 applic PRN PRN 05/19/25 07:30 05/19/25 09:41 1 APPLIC Butorphanol Tartrate (Stadol Injection) 1 mg Q4HPRN PRN 05/19/25 07:30 Butorphanol Tartrate (Stadol Injection) 2 mg Q4HPRN PRN 05/19/25 07:30 Misoprostol (Cytotec) 50 mcg Q4HPRN PRN 05/19/25 07:30 05/20/25 07:43 50 MCG Lidocaine HCl (Xylocaine) 20 ml ONCE PRN 05/19/25 07:30 Ursodiol (Actigall) 300 mg BID 05/19/25 10:00 05/19/25 22:31 300 MG Oxytocin 500 ml @ 999 mls/hr Q31M ONCE 05/19/25 10:00 05/19/25 10:30 DC Oxytocin 500 ml @ 125 mls/hr Q4H ONCE 05/19/25 10:30 05/19/25 14:29 DC Laboratory Tests Test 05/19/25 07:50 05/19/25 07:30 Range/Units White Blood Count 6.2 4.4-10.8 10^3/uL Red Blood Count 4.28 4.0-5.20 10^6/uL Hemoglobin 13.6 12.2-16.2 g/dL Hematocrit 39.7 36.0-46.0 % Mean Corpuscular Volume 92.9 80.0-100.0 fL Mean Corpuscular Hemoglobin 31.8 28.0-32.0 pg Mean Corpuscular Hemoglobin Concent 34.2 32.0-36.0 g/dL Red Cell Distribution Width 14.3 11.8-14.3 % Platelet Count 153 140-450 10^3/uL Mean Platelet Volume 10.6 6.9-10.8 fL Neutrophils (%) (Auto) 58.8 37.0-80.0 % Lymphocytes (%) (Auto) 32.1 10.0-50.0 % Monocytes (%) (Auto) 6.3 0.0-12.0 % Eosinophils (%) (Auto) 2.1 0.0-7.0 % Basophils (%) (Auto) 0.7 0.0-2.0 % Neutrophils # (Auto) 3.6 1.6-8.6 10 ^3/uL Lymphocytes # (Auto) 2.0 0.4-5.4 10 ^3/uL Monocytes # (Auto) 0.4 0-1.3 10 ^3/uL Eosinophils # (Auto) 0.1 0-0.8 10 ^3/uL Basophils # (Auto) 0 0-0.2 10 ^3/uL Nucleated Red Blood Cells 0.1 % Prothrombin Time 9.3 9.3-11.8 sec Prothrombin Time INR 0.86 L 0.9-1.15 Activated Partial Thromboplast Time 27.5 24.5-34.5 SEC Sodium Level 138 136-145 mmol/L Potassium Level 3.9 3.5-5.1 mmol/L Chloride Level 106 98-107 mmol/L Carbon Dioxide Level 20 20-31 mmol/L Anion Gap 12 5-15 Blood Urea Nitrogen 9 9-23 mg/dL Creatinine 0.65 0.550-1.02 mg/dL Glomerular Filtration Rate Calc 120 >90 mL/min BUN/Creatinine Ratio 13.8 10.0-20.0 Serum Glucose 77 74-106 mg/dL Calcium Level 9.1 8.7-10.4 mg/dL Total Bilirubin 0.7 0.2-1.0 mg/dL Aspartate Amino Transferase (AST) 83 H 13-40 U/L Alanine Aminotransferase (ALT) 133 H 7-40 U/L Alkaline Phosphatase 271 H 46-116 U/L Total Protein 6.5 5.7-8.2 g/dL Albumin 3.9 3.2-4.8 g/dL Treponema pallidum Antibody Non-reactive Negative Hepatitis C Antibody Negative Negative Urine Color Yellow Yellow Urine Clarity Clear Clear Urine pH 6.5 5.0-9.0 Urine Specific [place] 1.015 1.001-1.035 Urine Protein Negative Negative Urine Ketones Negative Negative Urine Blood Negative Negative /uL Urine Nitrite Negative Negative Urine Bilirubin Negative Negative Urine Urobilinogen 2 H Negative mg/dL Urine Leukocyte Esterase 3+ Negative /uL Urine RBC <1 0 - 4 /hpf Urine Microscopic WBC 4 0-5 /HPF Urine Squamous Epithelial Cells Few <5 /hpf Urine Bacteria Few H None Seen /hpf Urine Glucose Normal Normal mg/dL Urine Opiates Screen Neg NEGATIVE Urine Fentanyl Screen Neg NEGATIVE Urine Barbiturates Screen Neg NEGATIVE Urine Phencyclidine Screen Neg NEGATIVE Urine Amphetamines Screen Neg NEGATIVE Urine Benzodiazepines Screen Neg NEGATIVE Urine Cocaine Screen Neg NEGATIVE Urine Cannabinoids Screen Neg NEGATIVE Assessment Assessment IUP at 37w 3d Cholestasis of IOL for above Plan Plan Continue Misoprostol May consider cervical ripening balloon EFM per protocol Intrauterine resuscitation PRN encourage ambulation / frequent position change to facilitate labor and descent Labor analgesia PRN Supportive Care Anticipate Plan discussed with: Patient, Spouse Visit Coding OBGYN Date of Service: May 19, 2025 Billing Provider: GILLES HUNT CNM SHIPPING CHECKER Common Visit Codes: [id number] INP/OBS CARE(HIGH) SHIPPING CHECKER Procedure Codes: 42044-02- NON-STRESS TEST GILLES HUNT CNM May 19, 2025 23:55
--- NOTE | 2025-05-20 03:21 | DVHPN2 ---
CNM Labor Progress Note Date and Time Seen Date Seen: May 20, 2025 Time Seen: 02:26 Subjective Patient reports: No new complaints Monitoring Method Monitoring Method: External Heart Rate Heart Rate Baseline: 135 Heart Rate Variability: Moderate Presence of FHR Accelerations: Yes Presence of FHR Decelerations: No Changes in Trends of Patterns: No Are all 5 Components of the FH: Yes Contractions Contractions Frequency: Other (2-3min) Duration of Contraction: 70 Contractions Intensity: Moderate Contractions Resting Tone: Relaxed Membranes Membranes: Intact Vaginal Exam Vag Exam Deferred: No Vaginal Exam Dilation: 2 Vaginal Exam Effacement: 40 Vaginal Exam Station: -2 Vaginal Exam Presentation: VTX Vaginal Exam Show: None Medications Medications - Pitocin: No Medications - Pain Medications: no Medication - Epidural: No Medication - Other Misoprostol dose #3 at 1743 Lab Results Lab Results Current Medications Medications (Trade) Dose Ordered Sig/Reese Start Time Stop Time Status Last Admin Dose Admin Lactated Ringer's 1,000 ml @ 125 mls/hr Q8H 05/19/25 07:30 05/20/25 03:00 125 MLS/HR Edwin Moctezuma (Tucks) 1 pad PRN PRN 05/19/25 07:30 05/19/25 09:40 1 PAD Sodium Lauryl Sulfate (Phisoderm) 240 ml PRN PRN 05/19/25 07:30 05/19/25 09:41 240 ML Benzocaine (Dermoplast) 1 applic PRN PRN 05/19/25 07:30 05/19/25 09:41 1 APPLIC Butorphanol Tartrate (Stadol Injection) 1 mg Q4HPRN PRN 05/19/25 07:30 Butorphanol Tartrate (Stadol Injection) 2 mg Q4HPRN PRN 05/19/25 07:30 Misoprostol (Cytotec) 50 mcg Q4HPRN PRN 05/19/25 07:30 05/20/25 07:43 50 MCG Lidocaine HCl (Xylocaine) 20 ml ONCE PRN 05/19/25 07:30 Ursodiol (Actigall) 300 mg BID 05/19/25 10:00 05/19/25 22:31 300 MG Oxytocin 500 ml @ 999 mls/hr Q31M ONCE 05/19/25 10:00 05/19/25 10:30 DC Oxytocin 500 ml @ 125 mls/hr Q4H ONCE 05/19/25 10:30 05/19/25 14:29 DC Laboratory Tests Test 05/19/25 07:50 05/19/25 07:30 Range/Units White Blood Count 6.2 4.4-10.8 10^3/uL Red Blood Count 4.28 4.0-5.20 10^6/uL Hemoglobin 13.6 12.2-16.2 g/dL Hematocrit 39.7 36.0-46.0 % Mean Corpuscular Volume 92.9 80.0-100.0 fL Mean Corpuscular Hemoglobin 31.8 28.0-32.0 pg Mean Corpuscular Hemoglobin Concent 34.2 32.0-36.0 g/dL Red Cell Distribution Width 14.3 11.8-14.3 % Platelet Count 153 140-450 10^3/uL Mean Platelet Volume 10.6 6.9-10.8 fL Neutrophils (%) (Auto) 58.8 37.0-80.0 % Lymphocytes (%) (Auto) 32.1 10.0-50.0 % Monocytes (%) (Auto) 6.3 0.0-12.0 % Eosinophils (%) (Auto) 2.1 0.0-7.0 % Basophils (%) (Auto) 0.7 0.0-2.0 % Neutrophils # (Auto) 3.6 1.6-8.6 10 ^3/uL Lymphocytes # (Auto) 2.0 0.4-5.4 10 ^3/uL Monocytes # (Auto) 0.4 0-1.3 10 ^3/uL Eosinophils # (Auto) 0.1 0-0.8 10 ^3/uL Basophils # (Auto) 0 0-0.2 10 ^3/uL Nucleated Red Blood Cells 0.1 % Prothrombin Time 9.3 9.3-11.8 sec Prothrombin Time INR 0.86 L 0.9-1.15 Activated Partial Thromboplast Time 27.5 24.5-34.5 SEC Sodium Level 138 136-145 mmol/L Potassium Level 3.9 3.5-5.1 mmol/L Chloride Level 106 98-107 mmol/L Carbon Dioxide Level 20 20-31 mmol/L Anion Gap 12 5-15 Blood Urea Nitrogen 9 9-23 mg/dL Creatinine 0.65 0.550-1.02 mg/dL Glomerular Filtration Rate Calc 120 >90 mL/min BUN/Creatinine Ratio 13.8 10.0-20.0 Serum Glucose 77 74-106 mg/dL Calcium Level 9.1 8.7-10.4 mg/dL Total Bilirubin 0.7 0.2-1.0 mg/dL Aspartate Amino Transferase (AST) 83 H 13-40 U/L Alanine Aminotransferase (ALT) 133 H 7-40 U/L Alkaline Phosphatase 271 H 46-116 U/L Total Protein 6.5 5.7-8.2 g/dL Albumin 3.9 3.2-4.8 g/dL Treponema pallidum Antibody Non-reactive Negative Hepatitis C Antibody Negative Negative Urine Color Yellow Yellow Urine Clarity Clear Clear Urine pH 6.5 5.0-9.0 Urine Specific [place] 1.015 1.001-1.035 Urine Protein Negative Negative Urine Ketones Negative Negative Urine Blood Negative Negative /uL Urine Nitrite Negative Negative Urine Bilirubin Negative Negative Urine Urobilinogen 2 H Negative mg/dL Urine Leukocyte Esterase 3+ Negative /uL Urine RBC <1 0 - 4 /hpf Urine Microscopic WBC 4 0-5 /HPF Urine Squamous Epithelial Cells Few <5 /hpf Urine Bacteria Few H None Seen /hpf Urine Glucose Normal Normal mg/dL Urine Opiates Screen Neg NEGATIVE Urine Fentanyl Screen Neg NEGATIVE Urine Barbiturates Screen Neg NEGATIVE Urine Phencyclidine Screen Neg NEGATIVE Urine Amphetamines Screen Neg NEGATIVE Urine Benzodiazepines Screen Neg NEGATIVE Urine Cocaine Screen Neg NEGATIVE Urine Cannabinoids Screen Neg NEGATIVE Assessment Assessment IUP at 37w 4d Cholestasis of IOL for above Plan Plan Cervical Ripening balloon inserted; 60mL of fluid in balloon Continue EFM per policy Intrauterine resuscitation PRN Labor analgesia PRN Supportive care Anticipate Plan discussed with: Patient Visit Coding OBGYN Date of Service: May 20, 2025 Billing Provider: GILLES HUNT CNM SUPERVISOR PYROTECHNIC LOADING Common Visit Codes: [id number] INP/OBS CARE(HIGH) SUPERVISOR PYROTECHNIC LOADING Procedure Codes: 76382-81- NON-STRESS TEST GILLES HUNT CNM May 20, 2025 03:21
--- NOTE | 2025-05-20 07:39 | DVHPN2 ---
Chief Complaints Patient reports: No new complaints Nursing reports: No new complaints Objective Medications Current Medications Medications (Trade) Dose Ordered Sig/Reese Route PRN Reason Start Time Stop Time Status Last Admin Penicillin G Potassium [id number] units/Dextrose 50 ml @ 100 mls/hr Q4H IV 05/19/25 12:00 Cancel Ursodiol (Actigall) 300 mg BID PO 05/19/25 10:00 05/19/25 22:31 Others VE-3CM/70/-2 Studies Laboratory Tests 05/19/25 07:50 Test 05/19/25 07:50 Range/Units Serum Glucose 77 74-106 mg/dL Ass/Plan Assessment IOL FOR CHOLESTASIS Plan CONT WITH CYTOTEC Visit Coding OBGYN Date of Service: May 20, 2025 Billing Provider: FERNIE MOSHER DO LINUX VMWARE ADMINISTRATOR Common Visit Codes: [id number] INP/OBS CARE(HIGH) LINUX VMWARE ADMINISTRATOR Procedure Codes: 94602-62- NON-STRESS TEST FERNIE MOSHER DO May 20, 2025 07:39
--- NOTE | 2025-05-20 12:14 | DVHPN2 ---
Chief Complaints Patient reports: No new complaints Nursing reports: No new complaints Objective Medications Current Medications Medications (Trade) Dose Ordered Sig/Reese Route PRN Reason Start Time Stop Time Status Last Admin Oxytocin 1,000 ml @ 6 ml/hr Q24H IV 05/20/25 12:15 UNV Terbutaline Sulfate (Brethine Inj) 0.25 mg ONCE PRN SC Uterine tachysystole 05/20/25 12:15 UNV Others VE-4-5/60/-2 Studies Laboratory Tests 05/19/25 07:50 Test 05/19/25 07:50 Range/Units Serum Glucose 77 74-106 mg/dL Ass/Plan Assessment IOL FOR CHOLESTASIS Plan CONT WITH PITOCIN Visit Coding OBGYN Date of Service: May 20, 2025 Billing Provider: FERNIE MOSHER DO BI ANALYST Common Visit Codes: [id number] INP/OBS CARE (HIGH) BI ANALYST Procedure Codes: 48380-99- NON-STRESS TEST FERNIE MOSHER DO May 20, 2025 12:14
[2025-05-20] MEDS ORDERED: NALOXONE HCL 0.4 MG/ML VIAL IV ONE ×2 (12:15→13:15)
[2025-05-20] MEDS ORDERED: TERBUTALINE SULFATE 1 MG/ML 1ML VIAL SC PRN (12:15)
[2025-05-20] MEDS: ceFAZolin 2 GM/D5W50ml 50 ML IV ONE (13:00)
[2025-05-20] MEDS ORDERED: fentaNYL 400mCg/200ml W ROPIVA 200 ML EPI SCH (13:15)
[2025-05-20] MEDS ORDERED: LACTATED RINGER'S 500 ML IV ONE (13:15)
[2025-05-20] MEDS ORDERED: LIDOCAINE HCL 2 %PF INJ 10ML AMP IJ ONE (13:15)
[2025-05-20] MEDS: fentaNYL CITRATE 100 MCG/2 ML VL IV ONE (13:35)
--- NOTE | 2025-05-20 13:46 | EPIDURAL ---
Anesthesia Procedural Note - Epidural Date: May 20, 2025 Informed consent obtained?: Yes Medication Administered: Fentanyl 100 mcg Medication Administered: ePHEDrine 5 mg IV Spinal level of insertion: L2-L3 Test dose of lidocaine & Epine: Negative Infusion started: Yes Start time: 12:45 End time: 13:35 DEB COLE MD May 20, 2025 13:46
[2025-05-20] MEDS: LACT. RINGERS/OXYTOCIN 20UNITS 1,000 ML IV SCH (15:00)
[2025-05-20] MEDS: FAMOTIDINE (10MG/ML) 2ML VL IV ONE (15:42)
[2025-05-20] MEDS: LIDOCAINE HCL 2 %PF INJ 10ML AMP IJ ONE (15:43)
[2025-05-20] MEDS: ONDANSETRON HCL 4 MG/2 ML VIAL IV PRN (19:57)
[2025-05-20] MEDS ORDERED: ROPIVACAINE HCL 100 ML ONE (19:57)
[2025-05-20] MEDS: ceFAZolin 1GM/50ML 50 ML IV SCH (20:19)
--- NOTE | 2025-05-20 21:04 | DVHPN2 ---
CNM Labor Progress Note Date and Time Seen Date Seen: May 20, 2025 Time Seen: 19:00 Subjective Patient reports: No new complaints Objective Vital Signs A&O x3, NAD, Appropriate and normal mood and affect Afebrile, VSS Respiration unlabored Monitoring Method Monitoring Method: External Heart Rate Heart Rate Baseline: 135 Heart Rate Variability: Moderate Presence of FHR Accelerations: Yes Presence of FHR Decelerations: No Changes in Trends of Patterns: No Are all 5 Components of the FH: Yes Contractions Contractions Frequency: Other (2-4) Duration of Contraction: 50 Contractions Intensity: Mild Contractions Resting Tone: Relaxed Membranes Membranes: Intact Vaginal Exam Vag Exam Deferred: No Vaginal Exam Dilation: 4 Vaginal Exam Effacement: 50 Vaginal Exam Station: -3 Vaginal Exam Presentation: VTX Vaginal Exam Show: Moderate Medications Medications - Pitocin: Yes Medication - Epidural: Yes Lab Results Lab Results Vital Signs Date Time Temp Pulse Resp B/P (MAP) Pulse Ox O2 Delivery O2 Flow Rate FiO2 05/20/25 13:35 108/70 Current Medications Medications (Trade) Dose Ordered Sig/Reese Start Time Stop Time Status Last Admin Dose Admin Lactated Ringer's 1,000 ml @ 125 mls/hr Q8H 05/19/25 07:30 05/20/25 20:28 125 MLS/HR Witch Rhianna (Tucks) 1 pad PRN PRN 05/19/25 07:30 05/19/25 09:40 1 PAD Sodium Lauryl Sulfate (Phisoderm) 240 ml PRN PRN 05/19/25 07:30 05/19/25 09:41 240 ML Benzocaine (Dermoplast) 1 applic PRN PRN 05/19/25 07:30 05/19/25 09:41 1 APPLIC Butorphanol Tartrate (Stadol Injection) 1 mg Q4HPRN PRN 05/19/25 07:30 Butorphanol Tartrate (Stadol Injection) 2 mg Q4HPRN PRN 05/19/25 07:30 Misoprostol (Cytotec) 50 mcg Q4HPRN PRN 05/19/25 07:30 05/20/25 07:43 50 MCG Lidocaine HCl (Xylocaine) 20 ml ONCE PRN 05/19/25 07:30 Ursodiol (Actigall) 300 mg BID 05/19/25 10:00 05/20/25 10:47 300 MG Oxytocin 500 ml @ 999 mls/hr Q31M ONCE 05/19/25 10:00 05/19/25 10:30 DC Oxytocin 500 ml @ 125 mls/hr Q4H ONCE 05/19/25 10:30 05/19/25 14:29 DC Oxytocin 1,000 ml @ 6 ml/hr Q24H 05/20/25 12:15 05/20/25 15:00 6 ML/HR Terbutaline Sulfate (Brethine Inj) 0.25 mg ONCE PRN 05/20/25 12:15 Naloxone HCl (Narcan) 0.2 mg PRN ONCE 05/20/25 12:15 05/20/25 12:44 DC Ephedrine Sulfate (ePHEDrine SULFATE) 10 mg PRN ONCE 05/20/25 12:15 05/20/25 12:44 DC 05/20/25 13:38 10 MG Fentanyl Citrate 100 mcg ONCE ONCE 05/20/25 12:15 05/20/25 12:44 DC 05/20/25 13:35 100 MCG Lidocaine HCl (Xylocaine-Pf 2% Injection) 10 ml ONCE ONCE 05/20/25 12:15 05/20/25 12:44 DC 05/20/25 15:43 10 ML Cefazolin Sodium/ Dextrose 50 ml @ 50 mls/hr ONCE ONCE 05/20/25 13:00 05/20/25 13:59 DC 05/20/25 13:00 50 MLS/HR Cefazolin Sodium 50 ml @ 100 mls/hr Q8HR 05/20/25 21:00 Naloxone HCl (Narcan) 0.2 mg PRN ONCE 05/20/25 13:15 05/20/25 14:08 DC Ephedrine Sulfate (ePHEDrine SULFATE) 10 mg PRN ONCE 05/20/25 13:15 05/20/25 14:08 DC 05/20/25 15:43 10 MG Lidocaine HCl (Xylocaine-Pf 2% Injection) 5 ml ONCE ONCE 05/20/25 13:15 05/20/25 14:08 DC Lactated Ringer's 500 ml @ 500 mls/hr Q1H ONCE 05/20/25 13:15 05/20/25 14:14 DC Fentanyl/ Ropivacaine 200 ml @ 10 mls/hr UD 05/20/25 13:15 05/22/25 13:14 Famotidine (Pepcid Injection) 20 mg ONCE ONCE 05/20/25 15:30 05/20/25 15:31 DC 05/20/25 15:42 20 MG Ondansetron HCl (Zofran) 4 mg Q8HPRN PRN 05/20/25 19:30 05/20/25 19:57 4 MG Laboratory Tests Test 05/19/25 07:50 05/19/25 07:30 Range/Units White Blood Count 6.2 4.4-10.8 10^3/uL Red Blood Count 4.28 4.0-5.20 10^6/uL Hemoglobin 13.6 12.2-16.2 g/dL Hematocrit 39.7 36.0-46.0 % Mean Corpuscular Volume 92.9 80.0-100.0 fL Mean Corpuscular Hemoglobin 31.8 28.0-32.0 pg Mean Corpuscular Hemoglobin Concent 34.2 32.0-36.0 g/dL Red Cell Distribution Width 14.3 11.8-14.3 % Platelet Count 153 140-450 10^3/uL Mean Platelet Volume 10.6 6.9-10.8 fL Neutrophils (%) (Auto) 58.8 37.0-80.0 % Lymphocytes (%) (Auto) 32.1 10.0-50.0 % Monocytes (%) (Auto) 6.3 0.0-12.0 % Eosinophils (%) (Auto) 2.1 0.0-7.0 % Basophils (%) (Auto) 0.7 0.0-2.0 % Neutrophils # (Auto) 3.6 1.6-8.6 10 ^3/uL Lymphocytes # (Auto) 2.0 0.4-5.4 10 ^3/uL Monocytes # (Auto) 0.4 0-1.3 10 ^3/uL Eosinophils # (Auto) 0.1 0-0.8 10 ^3/uL Basophils # (Auto) 0 0-0.2 10 ^3/uL Nucleated Red Blood Cells 0.1 % Prothrombin Time 9.3 9.3-11.8 sec Prothrombin Time INR 0.86 L 0.9-1.15 Activated Partial Thromboplast Time 27.5 24.5-34.5 SEC Sodium Level 138 136-145 mmol/L Potassium Level 3.9 3.5-5.1 mmol/L Chloride Level 106 98-107 mmol/L Carbon Dioxide Level 20 20-31 mmol/L Anion Gap 12 5-15 Blood Urea Nitrogen 9 9-23 mg/dL Creatinine 0.65 0.550-1.02 mg/dL Glomerular Filtration Rate Calc 120 >90 mL/min BUN/Creatinine Ratio 13.8 10.0-20.0 Serum Glucose 77 74-106 mg/dL Calcium Level 9.1 8.7-10.4 mg/dL Total Bilirubin 0.7 0.2-1.0 mg/dL Aspartate Amino Transferase (AST) 83 H 13-40 U/L Alanine Aminotransferase (ALT) 133 H 7-40 U/L Alkaline Phosphatase 271 H 46-116 U/L Total Protein 6.5 5.7-8.2 g/dL Albumin 3.9 3.2-4.8 g/dL Treponema pallidum Antibody Non-reactive Negative Hepatitis C Antibody Negative Negative Urine Color Yellow Yellow Urine Clarity Clear Clear Urine pH 6.5 5.0-9.0 Urine Specific [place] 1.015 1.001-1.035 Urine Protein Negative Negative Urine Ketones Negative Negative Urine Blood Negative Negative /uL Urine Nitrite Negative Negative Urine Bilirubin Negative Negative Urine Urobilinogen 2 H Negative mg/dL Urine Leukocyte Esterase 3+ Negative /uL Urine RBC <1 0 - 4 /hpf Urine Microscopic WBC 4 0-5 /HPF Urine Squamous Epithelial Cells Few <5 /hpf Urine Bacteria Few H None Seen /hpf Urine Glucose Normal Normal mg/dL Urine Opiates Screen Neg NEGATIVE Urine Fentanyl Screen Neg NEGATIVE Urine Barbiturates Screen Neg NEGATIVE Urine Phencyclidine Screen Neg NEGATIVE Urine Amphetamines Screen Neg NEGATIVE Urine Benzodiazepines Screen Neg NEGATIVE Urine Cocaine Screen Neg NEGATIVE Urine Cannabinoids Screen Neg NEGATIVE Consulting with Regarding Dr. Montero regarding slow program. Recommend giving her a break. Stop Oxytocin and re-start in the morning at 5 or 6am if needed. Assessment Assessment <> IUP at 37w 4d <> Cholestasis of <> IOL for above <> Category I FHR Tracing Plan Plan <> Stop Oxytocin; allow patient to rest <> Re- assess labor at 5or 6am; re-start oxytocin if needed <> Continue EFM per policy and protocol <> Intrauterine resuscitation PRN <> Positioning & Frequent position change to facilitate descent and labor progress <> Provide comfort measures and supportive care Plan discussed with: Patient Visit Coding OBGYN Date of Service: May 20, 2025 Billing Provider: GILLES HUNT CNM MILITARY SCIENCE TEACHER Common Visit Codes: [id number] INP/OBS CARE(HIGH) MILITARY SCIENCE TEACHER Procedure Codes: 91224-43- NON-STRESS TEST GILLES HUNT CNM May 20, 2025 21:04
[2025-05-20] MEDS: ROPIVACAINE HCL 100 ML ONE (22:36)
--- NOTE | 2025-05-21 00:47 | DVHPN2 ---
CNM Labor Progress Note Date and Time Seen Date Seen: May 21, 2025 Time Seen: 00:40 Subjective Patient reports: No new complaints Subjective Comment VSS Monitoring Method Monitoring Method: External Heart Rate Heart Rate Baseline: 145 Heart Rate Variability: Moderate Presence of FHR Accelerations: Yes Presence of FHR Decelerations: No Changes in Trends of Patterns: No Are all 5 Components of the FH: Yes Contractions Duration of Contraction: 80 Contractions Intensity: Moderate Contractions Resting Tone: Relaxed Membranes Membranes: Intact Vaginal Exam Vag Exam Deferred: Yes Medications Medications - Pitocin: No Medication - Epidural: Yes Lab Results Lab Results Vital Signs Date Time Temp Pulse Resp B/P (MAP) Pulse Ox O2 Delivery O2 Flow Rate FiO2 05/20/25 13:35 108/70 Current Medications Medications (Trade) Dose Ordered Sig/Reese Start Time Stop Time Status Last Admin Dose Admin Lactated Ringer's 1,000 ml @ 125 mls/hr Q8H 05/19/25 07:30 05/20/25 20:28 125 MLS/HR Edwin [place]ct[place] (Tucks) 1 pad PRN PRN 05/19/25 07:30 05/19/25 09:40 1 PAD Sodium Lauryl Sulfate (Phisoderm) 240 ml PRN PRN 05/19/25 07:30 05/19/25 09:41 240 ML Benzocaine (Dermoplast) 1 applic PRN PRN 05/19/25 07:30 05/19/25 09:41 1 APPLIC Butorphanol Tartrate (Stadol Injection) 1 mg Q4HPRN PRN 05/19/25 07:30 Butorphanol Tartrate (Stadol Injection) 2 mg Q4HPRN PRN 05/19/25 07:30 Misoprostol (Cytotec) 50 mcg Q4HPRN PRN 05/19/25 07:30 05/20/25 07:43 50 MCG Lidocaine HCl (Xylocaine) 20 ml ONCE PRN 05/19/25 07:30 Ursodiol (Actigall) 300 mg BID 05/19/25 10:00 05/20/25 22:41 300 MG Oxytocin 500 ml @ 999 mls/hr Q31M ONCE 05/19/25 10:00 05/19/25 10:30 DC Oxytocin 500 ml @ 125 mls/hr Q4H ONCE 05/19/25 10:30 05/19/25 14:29 DC Oxytocin 1,000 ml @ 6 ml/hr Q24H 05/20/25 12:15 05/20/25 15:00 6 ML/HR Terbutaline Sulfate (Brethine Inj) 0.25 mg ONCE PRN 05/20/25 12:15 Naloxone HCl (Narcan) 0.2 mg PRN ONCE 05/20/25 12:15 05/20/25 12:44 DC Ephedrine Sulfate (ePHEDrine SULFATE) 10 mg PRN ONCE 05/20/25 12:15 05/20/25 12:44 DC 05/20/25 13:38 10 MG Fentanyl Citrate 100 mcg ONCE ONCE 05/20/25 12:15 05/20/25 12:44 DC 05/20/25 13:35 100 MCG Lidocaine HCl (Xylocaine-Pf 2% Injection) 10 ml ONCE ONCE 05/20/25 12:15 05/20/25 12:44 DC 05/20/25 15:43 10 ML Cefazolin Sodium/ Dextrose 50 ml @ 50 mls/hr ONCE ONCE 05/20/25 13:00 05/20/25 13:59 DC 05/20/25 13:00 50 MLS/HR Cefazolin Sodium 50 ml @ 100 mls/hr Q8HR 05/20/25 21:00 Naloxone HCl (Narcan) 0.2 mg PRN ONCE 05/20/25 13:15 05/20/25 14:08 DC Ephedrine Sulfate (ePHEDrine SULFATE) 10 mg PRN ONCE 05/20/25 13:15 05/20/25 14:08 DC 05/20/25 15:43 10 MG Lidocaine HCl (Xylocaine-Pf 2% Injection) 5 ml ONCE ONCE 05/20/25 13:15 05/20/25 14:08 DC Lactated Ringer's 500 ml @ 500 mls/hr Q1H ONCE 05/20/25 13:15 05/20/25 14:14 DC Fentanyl/ Ropivacaine 200 ml @ 10 mls/hr UD 05/20/25 13:15 05/22/25 13:14 Famotidine (Pepcid Injection) 20 mg ONCE ONCE 05/20/25 15:30 05/20/25 15:31 DC 05/20/25 15:42 20 MG Ondansetron HCl (Zofran) 4 mg Q8HPRN PRN 05/20/25 19:30 05/20/25 19:57 4 MG Laboratory Tests Test 05/19/25 07:50 05/19/25 07:30 Range/Units White Blood Count 6.2 4.4-10.8 10^3/uL Red Blood Count 4.28 4.0-5.20 10^6/uL Hemoglobin 13.6 12.2-16.2 g/dL Hematocrit 39.7 36.0-46.0 % Mean Corpuscular Volume 92.9 80.0-100.0 fL Mean Corpuscular Hemoglobin 31.8 28.0-32.0 pg Mean Corpuscular Hemoglobin Concent 34.2 32.0-36.0 g/dL Red Cell Distribution Width 14.3 11.8-14.3 % Platelet Count 153 140-450 10^3/uL Mean Platelet Volume 10.6 6.9-10.8 fL Neutrophils (%) (Auto) 58.8 37.0-80.0 % Lymphocytes (%) (Auto) 32.1 10.0-50.0 % Monocytes (%) (Auto) 6.3 0.0-12.0 % Eosinophils (%) (Auto) 2.1 0.0-7.0 % Basophils (%) (Auto) 0.7 0.0-2.0 % Neutrophils # (Auto) 3.6 1.6-8.6 10 ^3/uL Lymphocytes # (Auto) 2.0 0.4-5.4 10 ^3/uL Monocytes # (Auto) 0.4 0-1.3 10 ^3/uL Eosinophils # (Auto) 0.1 0-0.8 10 ^3/uL Basophils # (Auto) 0 0-0.2 10 ^3/uL Nucleated Red Blood Cells 0.1 % Prothrombin Time 9.3 9.3-11.8 sec Prothrombin Time INR 0.86 L 0.9-1.15 Activated Partial Thromboplast Time 27.5 24.5-34.5 SEC Sodium Level 138 136-145 mmol/L Potassium Level 3.9 3.5-5.1 mmol/L Chloride Level 106 98-107 mmol/L Carbon Dioxide Level 20 20-31 mmol/L Anion Gap 12 5-15 Blood Urea Nitrogen 9 9-23 mg/dL Creatinine 0.65 0.550-1.02 mg/dL Glomerular Filtration Rate Calc 120 >90 mL/min BUN/Creatinine Ratio 13.8 10.0-20.0 Serum Glucose 77 74-106 mg/dL Calcium Level 9.1 8.7-10.4 mg/dL Total Bilirubin 0.7 0.2-1.0 mg/dL Aspartate Amino Transferase (AST) 83 H 13-40 U/L Alanine Aminotransferase (ALT) 133 H 7-40 U/L Alkaline Phosphatase 271 H 46-116 U/L Total Protein 6.5 5.7-8.2 g/dL Albumin 3.9 3.2-4.8 g/dL Treponema pallidum Antibody Non-reactive Negative Hepatitis C Antibody Negative Negative Urine Color Yellow Yellow Urine Clarity Clear Clear Urine pH 6.5 5.0-9.0 Urine Specific [place] 1.015 1.001-1.035 Urine Protein Negative Negative Urine Ketones Negative Negative Urine Blood Negative Negative /uL Urine Nitrite Negative Negative Urine Bilirubin Negative Negative Urine Urobilinogen 2 H Negative mg/dL Urine Leukocyte Esterase 3+ Negative /uL Urine RBC <1 0 - 4 /hpf Urine Microscopic WBC 4 0-5 /HPF Urine Squamous Epithelial Cells Few <5 /hpf Urine Bacteria Few H None Seen /hpf Urine Glucose Normal Normal mg/dL Urine Opiates Screen Neg NEGATIVE Urine Fentanyl Screen Neg NEGATIVE Urine Barbiturates Screen Neg NEGATIVE Urine Phencyclidine Screen Neg NEGATIVE Urine Amphetamines Screen Neg NEGATIVE Urine Benzodiazepines Screen Neg NEGATIVE Urine Cocaine Screen Neg NEGATIVE Urine Cannabinoids Screen Neg NEGATIVE Assessment Assessment IUP at 37w 5d Cholestasis of IOL for above Category I FHR Tracing Plan Plan Continue with Oxytocin break Intrauterine resuscitation PRN Frequent position change to facilitate labor Supportive care Anticipate Plan discussed with: Patient Visit Coding OBGYN Date of Service: May 21, 2025 Billing Provider: GILLES HUNT CNM LEVELING MACHINE OPERATOR Common Visit Codes: [id number] INP/OBS CARE(HIGH) LEVELING MACHINE OPERATOR Procedure Codes: 20067-31- NON-STRESS TEST GILLES HUNT CNM May 21, 2025 00:47
--- NOTE | 2025-05-21 07:04 | DVHPN2 ---
Chief Complaints Patient reports: No new complaints Nursing reports: No new complaints Objective Vitals Vital Signs Date Time Temp Pulse Resp B/P (MAP) Pulse Ox O2 Delivery O2 Flow Rate FiO2 05/20/25 13:35 108/70 Medications Current Medications Medications (Trade) Dose Ordered Sig/Reese Route PRN Reason Start Time Stop Time Status Last Admin Cefazolin Sodium 50 ml @ 100 mls/hr Q8HR IV 05/20/25 21:00 Fentanyl/ Ropivacaine 200 ml @ 10 mls/hr UD EPI 05/20/25 13:15 05/22/25 13:14 Ondansetron HCl (Zofran) 4 mg Q8HPRN PRN IV NAUSEA / VOMITING 05/20/25 19:30 05/20/25 19:57 Oxytocin 1,000 ml @ 6 ml/hr Q24H IV 05/20/25 12:15 05/20/25 15:00 Terbutaline Sulfate (Brethine Inj) 0.25 mg ONCE PRN SC Uterine tachysystole 05/20/25 12:15 Others ve-5cm/60/-2 Studies Laboratory Tests 05/19/25 07:50 Test 05/21/25 06:22 Range/Units Serum Glucose Pending Ass/Plan Assessment IOL FOR CHOLESTASIS Plan cont with pitocin Visit Coding OBGYN Date of Service: May 21, 2025 Billing Provider: FERNIE MOSHER DO MARRIAGE AND FAMILY SOCIAL WORKER Common Visit Codes: [id number] INP/OBS CARE(HIGH) MARRIAGE AND FAMILY SOCIAL WORKER Procedure Codes: 35270-94- NON-STRESS TEST FERNIE MOSHER DO May 21, 2025 07:04
--- NOTE | 2025-05-21 07:12 | DVHPN2 ---
CNM Labor Progress Note Date and Time Seen Date Seen: May 21, 2025 Time Seen: 06:42 Subjective Patient reports: No new complaints Objective Vital Signs VSS Monitoring Method Monitoring Method: External Heart Rate Heart Rate Baseline: 135 Heart Rate Variability: Moderate Presence of FHR Accelerations: Yes Presence of FHR Decelerations: No Changes in Trends of Patterns: No Are all 5 Components of the FH: Yes Contractions Contractions Frequency: Other (2-3) Duration of Contraction: 70 Contractions Intensity: Moderate Contractions Resting Tone: Relaxed Membranes Membranes: Intact Vaginal Exam Vag Exam Deferred: No Vaginal Exam Dilation: 5 Vaginal Exam Effacement: 60 Vaginal Exam Station: -2 Vaginal Exam Presentation: VTX Vaginal Exam Show: Small Medications Medications - Pitocin: Yes Medication - Epidural: Yes Lab Results Lab Results Vital Signs Date Time Temp Pulse Resp B/P (MAP) Pulse Ox O2 Delivery O2 Flow Rate FiO2 05/20/25 13:35 108/70 Current Medications Medications (Trade) Dose Ordered Sig/Reese Start Time Stop Time Status Last Admin Dose Admin Lactated Ringer's 1,000 ml @ 125 mls/hr Q8H 05/19/25 07:30 05/21/25 03:35 125 MLS/HR Witch Rhianna (Tucks) 1 pad PRN PRN 05/19/25 07:30 05/19/25 09:40 1 PAD Sodium Lauryl Sulfate (Phisoderm) 240 ml PRN PRN 05/19/25 07:30 05/19/25 09:41 240 ML Benzocaine (Dermoplast) 1 applic PRN PRN 05/19/25 07:30 05/19/25 09:41 1 APPLIC Butorphanol Tartrate (Stadol Injection) 1 mg Q4HPRN PRN 05/19/25 07:30 Butorphanol Tartrate (Stadol Injection) 2 mg Q4HPRN PRN 05/19/25 07:30 Misoprostol (Cytotec) 50 mcg Q4HPRN PRN 05/19/25 07:30 05/20/25 07:43 50 MCG Lidocaine HCl (Xylocaine) 20 ml ONCE PRN 05/19/25 07:30 Ursodiol (Actigall) 300 mg BID 05/19/25 10:00 05/20/25 22:41 300 MG Oxytocin 500 ml @ 999 mls/hr Q31M ONCE 05/19/25 10:00 05/19/25 10:30 DC Oxytocin 500 ml @ 125 mls/hr Q4H ONCE 05/19/25 10:30 05/19/25 14:29 DC Oxytocin 1,000 ml @ 6 ml/hr Q24H 05/20/25 12:15 05/20/25 15:00 6 ML/HR Terbutaline Sulfate (Brethine Inj) 0.25 mg ONCE PRN 05/20/25 12:15 Naloxone HCl (Narcan) 0.2 mg PRN ONCE 05/20/25 12:15 05/20/25 12:44 DC Ephedrine Sulfate (ePHEDrine SULFATE) 10 mg PRN ONCE 05/20/25 12:15 05/20/25 12:44 DC 05/20/25 13:38 10 MG Fentanyl Citrate 100 mcg ONCE ONCE 05/20/25 12:15 05/20/25 12:44 DC 05/20/25 13:35 100 MCG Lidocaine HCl (Xylocaine-Pf 2% Injection) 10 ml ONCE ONCE 05/20/25 12:15 05/20/25 12:44 DC 05/20/25 15:43 10 ML Cefazolin Sodium/ Dextrose 50 ml @ 50 mls/hr ONCE ONCE 05/20/25 13:00 05/20/25 13:59 DC 05/20/25 13:00 50 MLS/HR Cefazolin Sodium 50 ml @ 100 mls/hr Q8HR 05/20/25 21:00 Naloxone HCl (Narcan) 0.2 mg PRN ONCE 05/20/25 13:15 05/20/25 14:08 DC Ephedrine Sulfate (ePHEDrine SULFATE) 10 mg PRN ONCE 05/20/25 13:15 05/20/25 14:08 DC 05/20/25 15:43 10 MG Lidocaine HCl (Xylocaine-Pf 2% Injection) 5 ml ONCE ONCE 05/20/25 13:15 05/20/25 14:08 DC Lactated Ringer's 500 ml @ 500 mls/hr Q1H ONCE 05/20/25 13:15 05/20/25 14:14 DC Fentanyl/ Ropivacaine 200 ml @ 10 mls/hr UD 05/20/25 13:15 05/22/25 13:14 Famotidine (Pepcid Injection) 20 mg ONCE ONCE 05/20/25 15:30 05/20/25 15:31 DC 05/20/25 15:42 20 MG Ondansetron HCl (Zofran) 4 mg Q8HPRN PRN 05/20/25 19:30 05/20/25 19:57 4 MG Laboratory Tests Test 05/21/25 06:22 05/19/25 07:50 05/19/25 07:30 Range/Units Sodium Level Pending Potassium Level Pending Chloride Level Pending Carbon Dioxide Level Pending Anion Gap Pending Blood Urea Nitrogen Pending Creatinine Pending Glomerular Filtration Rate Calc Pending BUN/Creatinine Ratio Pending Serum Glucose Pending Calcium Level Pending Total Bilirubin Pending Aspartate Amino Transferase (AST) Pending Alanine Aminotransferase (ALT) Pending Alkaline Phosphatase Pending Total Protein Pending Albumin Pending White Blood Count 6.2 4.4-10.8 10^3/uL Red Blood Count 4.28 4.0-5.20 10^6/uL Hemoglobin 13.6 12.2-16.2 g/dL Hematocrit 39.7 36.0-46.0 % Mean Corpuscular Volume 92.9 80.0-100.0 fL Mean Corpuscular Hemoglobin 31.8 28.0-32.0 pg Mean Corpuscular Hemoglobin Concent 34.2 32.0-36.0 g/dL Red Cell Distribution Width 14.3 11.8-14.3 % Platelet Count 153 140-450 10^3/uL Mean Platelet Volume 10.6 6.9-10.8 fL Neutrophils (%) (Auto) 58.8 37.0-80.0 % Lymphocytes (%) (Auto) 32.1 10.0-50.0 % Monocytes (%) (Auto) 6.3 0.0-12.0 % Eosinophils (%) (Auto) 2.1 0.0-7.0 % Basophils (%) (Auto) 0.7 0.0-2.0 % Neutrophils # (Auto) 3.6 1.6-8.6 10 ^3/uL Lymphocytes # (Auto) 2.0 0.4-5.4 10 ^3/uL Monocytes # (Auto) 0.4 0-1.3 10 ^3/uL Eosinophils # (Auto) 0.1 0-0.8 10 ^3/uL Basophils # (Auto) 0 0-0.2 10 ^3/uL Nucleated Red Blood Cells 0.1 % Prothrombin Time 9.3 9.3-11.8 sec Prothrombin Time INR 0.86 L 0.9-1.15 Activated Partial Thromboplast Time 27.5 24.5-34.5 SEC Treponema pallidum Antibody Non-reactive Negative Hepatitis C Antibody Negative Negative Urine Color Yellow Yellow Urine Clarity Clear Clear Urine pH 6.5 5.0-9.0 Urine Specific [place] 1.015 1.001-1.035 Urine Protein Negative Negative Urine Ketones Negative Negative Urine Blood Negative Negative /uL Urine Nitrite Negative Negative Urine Bilirubin Negative Negative Urine Urobilinogen 2 H Negative mg/dL Urine Leukocyte Esterase 3+ Negative /uL Urine RBC <1 0 - 4 /hpf Urine Microscopic WBC 4 0-5 /HPF Urine Squamous Epithelial Cells Few <5 /hpf Urine Bacteria Few H None Seen /hpf Urine Glucose Normal Normal mg/dL Urine Opiates Screen Neg NEGATIVE Urine Fentanyl Screen Neg NEGATIVE Urine Barbiturates Screen Neg NEGATIVE Urine Phencyclidine Screen Neg NEGATIVE Urine Amphetamines Screen Neg NEGATIVE Urine Benzodiazepines Screen Neg NEGATIVE Urine Cocaine Screen Neg NEGATIVE Urine Cannabinoids Screen Neg NEGATIVE Assessment Assessment <> IUP at 37w 5d <> Cholestasis of <> IOL for above <> Category I FHR tracing Plan Plan <> Amniotomy - done, clear copious fluid <> Continue Oxytocin <> Intrauterine resuscitation PRN <> Positioning and frquent position change to facilitate descent and labor <> Supportive care <> Anticipate Plan discussed with: Patient, Spouse Visit Coding OBGYN Date of Service: May 21, 2025 Billing Provider: GILLES HUNT CNM WOOD PANEL INSPECTOR Common Visit Codes: [id number] INP/OBS CARE(HIGH) WOOD PANEL INSPECTOR Procedure Codes: 83304-97- NON-STRESS TEST GILLES HUNT CNM May 21, 2025 07:12
[2025-05-21 07:19] LABS: Albumin 3.4 g/dL (3.2-4.8); Anion Gap 11 (5-15); BUN/Creatinine Ratio 8.3 (10.0-20.0); Calcium 8.8 mg/dL (8.7-10.4); Carbon Dioxide 21 mmol/L (20-31); Chloride 106 mmol/L (98-107); Glucose 79 mg/dL (74-106); Potassium 3.8 mmol/L (3.5-5.1); Sodium 138 mmol/L (136-145)
[2025-05-21 07:20] LABS: Bilirubin, Total 0.9 mg/dL (0.2-1.0)
[2025-05-21 07:21] LABS: Alkaline Phosphatase 243 U/L (46-116); Blood Urea Nitrogen 6 mg/dL (9-23)
[2025-05-21 07:22] LABS: Alanine Aminotransferase 119 U/L (7-40); Total Protein 5.7 g/dL (5.7-8.2)
[2025-05-21] MEDS ORDERED: METHYLERGONOVINE MALEATE 0.2 MG/ML AMP IM ONE ×2 (08:00→08:17)
[2025-05-21] MEDS: LACT. RINGERS/OXYTOCIN 20UNITS 500 ML IV ONE ×2 (08:39→08:53)
[2025-05-21] MEDS ORDERED: ONDANSETRON ODT 4 MG TAB PO PRN (09:00)
[2025-05-21] MEDS ORDERED: ACETAMINOPHEN 325 MG TAB PO PRN (09:00)
--- NOTE | 2025-05-21 09:43 | LDN2 ---
Labor and Delivery Note Date 05/21/25 Age 34 4 Para 3 AB 0 EDC 06/06/2025 EGA 37w 5d Diagnosis IUP at 37w 5d Cholestasis of IOL Vaginal Delivery: VTX Vacuum Assisted: No Placenta: Manual Sex: Female Weight 3120g (6Lbs 14oz) Apgars 8 at 1min and 9 at 5minutes of life Episiotomy: No Extension: Yes Repaired with 2-0 Vicryl EBL 200mL Labs Laboratory Tests 11/22/24 11:40: Hepatitis B Surface Antigen Negative, HIV (1&2) Antibody Negative, Rubella Antibody Positive Blood Bank 05/19/25 07:50: Blood Type O POSITIVE Complications Delayed Placenta delivery (3rd Stage lasted 43mins) Conditions Mother and baby stable International Controller Juan Carlos Hurd Comments/Significant Med [place] At 0818, 34yo, now delivered a viable Female infant by w/ score 8 at one & 9 @ five minutes of life. ADOLPH position Infant placed skin to skin on pt's chest. Cord clamped and cut after pulsation ceased. Cord blood sent. Pitocin IV bolus started. Intact 3-vessel cord placenta was later delivered at 09:[address] Montero, same complete Placenta sent to pathology. Patient had labor epidural anesthesia. Cervix/vagina inspected. Cervix intact. First degree perineal laceration noted and was repaired with 2-0 Vicryl suture. Rectal mucosa and sphincter intact. Rectal exam performed, WNL, not involved Fundus at U, firm, midline, and light lochia. QBL 200ml. VSS. Count correct x2. Patient to care and baby to couplet care, both stable. Visit Coding OBGYN Date of Service: May 21, 2025 Billing Provider: GILLES HUNT CNM MANAGER [address]IGHW[address] Common Visit Codes: [id number] INP/OBS CARE(HIGH) MANAGER [address]IG[address] Procedure Codes: 40183-30- NON-STRESS TEST, [id number] DELIVERY O NLY GILLES HUNT CNM May 21, 2025 09:43
[2025-05-21 11:00] VITALS: BP 130/77; PULSE 74; RESP 16; TEMP 98.5; O2SAT 99
[2025-05-21] MEDS: IBUPROFEN 600 MG TAB PO PRN (11:05)
[2025-05-21 11:31] VITALS: PULSE 75; RESP 16
[2025-05-21 15:10] VITALS: BP 127/78; PULSE 74; RESP 16; TEMP 98.6; O2SAT 98
[2025-05-21 19:20] VITALS: BP 126/58; PULSE 67; RESP 16; TEMP 98.2; O2SAT 97
--- NOTE | 2025-05-21 21:18 | DVHPN2 ---
Progress Note Date Seen: May 21, 2025 Subjective Rounding Subjective: Patient is 34 y/o (4,0,0,4) female 05/21/2025 @ 0818 IOL 37w5d for Cholestasis in Scant bleeding noted Regular diet tolerated Denies lightheaded/dizziness, pain well controlled with oral medications, no concerns with urinating. Ambulating well, well Objective VSS Vital Signs Date Time Temp Pulse Resp B/P (MAP) Pulse Ox O2 Delivery O2 Flow Rate FiO2 05/21/25 19:20 98.2 67 16 126/58 (80) 97 98.2 05/21/25 19:00 Room Air Chest: heart sounds normal and lung sounds clear bilaterally Abd: soft, non-tender, fundus 1-U/firm/midline, active bowel sounds, no rebound or guarding Fundus -1 @ umbilicus, midline , lochia rubra with scant rubra bleeding Bladder distended with palpation Ext: Non-tender, No edema, 2+ BLE DTRs Lochia: minimal Laboratory Tests Test 05/21/25 06:22 05/19/25 07:50 05/19/25 07:30 Range/Units Sodium Level 138 136-145 mmol/L Potassium Level 3.8 3.5-5.1 mmol/L Chloride Level 106 98-107 mmol/L Carbon Dioxide Level 21 20-31 mmol/L Anion Gap 11 5-15 Blood Urea Nitrogen 6 L 9-23 mg/dL Creatinine 0.72 0.550-1.02 mg/dL Glomerular Filtration Rate Calc 114 >90 mL/min BUN/Creatinine Ratio 8.3 L 10.0-20.0 Serum Glucose 79 74-106 mg/dL Calcium Level 8.8 8.7-10.4 mg/dL Total Bilirubin 0.9 0.2-1.0 mg/dL Aspartate Amino Transferase (AST) 63 H 13-40 U/L Alanine Aminotransferase (ALT) 119 H 7-40 U/L Alkaline Phosphatase 243 H 46-116 U/L Total Protein 5.7 5.7-8.2 g/dL Albumin 3.4 3.2-4.8 g/dL White Blood Count 6.2 4.4-10.8 10^3/uL Red Blood Count 4.28 4.0-5.20 10^6/uL Hemoglobin 13.6 12.2-16.2 g/dL Hematocrit 39.7 36.0-46.0 % Mean Corpuscular Volume 92.9 80.0-100.0 fL Mean Corpuscular Hemoglobin 31.8 28.0-32.0 pg Mean Corpuscular Hemoglobin Concent 34.2 32.0-36.0 g/dL Red Cell Distribution Width 14.3 11.8-14.3 % Platelet Count 153 140-450 10^3/uL Mean Platelet Volume 10.6 6.9-10.8 fL Neutrophils (%) (Auto) 58.8 37.0-80.0 % Lymphocytes (%) (Auto) 32.1 10.0-50.0 % Monocytes (%) (Auto) 6.3 0.0-12.0 % Eosinophils (%) (Auto) 2.1 0.0-7.0 % Basophils (%) (Auto) 0.7 0.0-2.0 % Neutrophils # (Auto) 3.6 1.6-8.6 10 ^3/uL Lymphocytes # (Auto) 2.0 0.4-5.4 10 ^3/uL Monocytes # (Auto) 0.4 0-1.3 10 ^3/uL Eosinophils # (Auto) 0.1 0-0.8 10 ^3/uL Basophils # (Auto) 0 0-0.2 10 ^3/uL Nucleated Red Blood Cells 0.1 % Prothrombin Time 9.3 9.3-11.8 sec Prothrombin Time INR 0.86 L 0.9-1.15 Activated Partial Thromboplast Time 27.5 24.5-34.5 SEC Treponema pallidum Antibody Non-reactive Negative Hepatitis C Antibody Negative Negative Urine Color Yellow Yellow Urine Clarity Clear Clear Urine pH 6.5 5.0-9.0 Urine Specific [place] 1.015 1.001-1.035 Urine Protein Negative Negative Urine Ketones Negative Negative Urine Blood Negative Negative /uL Urine Nitrite Negative Negative Urine Bilirubin Negative Negative Urine Urobilinogen 2 H Negative mg/dL Urine Leukocyte Esterase 3+ Negative /uL Urine RBC <1 0 - 4 /hpf Urine Microscopic WBC 4 0-5 /HPF Urine Squamous Epithelial Cells Few <5 /hpf Urine Bacteria Few H None Seen /hpf Urine Glucose Normal Normal mg/dL Urine Opiates Screen Neg NEGATIVE Urine Fentanyl Screen Neg NEGATIVE Urine Barbiturates Screen Neg NEGATIVE Urine Phencyclidine Screen Neg NEGATIVE Urine Amphetamines Screen Neg NEGATIVE Urine Benzodiazepines Screen Neg NEGATIVE Urine Cocaine Screen Neg NEGATIVE Urine Cannabinoids Screen Neg NEGATIVE Current Medications Medications (Trade) Dose Ordered Sig/Reese Route PRN Reason Start Time Stop Time Status Last Admin Dose Admin Lactated Ringer's 1,000 ml @ 125 mls/hr Q8H IV 05/19/25 07:30 05/21/25 03:35 125 MLS/HR Penicillin G Potassium 50 ml @ 100 mls/hr ONCE ONCE IV 05/19/25 07:30 05/19/25 07:59 Cancel Penicillin G Potassium [id number] units/Dextrose 50 ml @ 100 mls/hr Q4H IV 05/19/25 12:00 Cancel Witch Rhianna (Tucks) 1 pad PRN PRN TOP PERINEAL AREA DISCOMFORT 05/19/25 07:30 05/19/25 09:40 1 PAD Sodium Lauryl Sulfate (Phisoderm) 240 ml PRN PRN TOP PERINEAL AREA DISCOMFORT 05/19/25 07:30 05/19/25 09:41 240 ML Benzocaine (Dermoplast) 1 applic PRN PRN TOP PERINEAL AREA DISCOMFORT 05/19/25 07:30 05/19/25 09:41 1 APPLIC Butorphanol Tartrate (Stadol Injection) 1 mg Q4HPRN PRN IV MODERATE PAIN (4-6 PAIN SCALE) 05/19/25 07:30 Cancel Butorphanol Tartrate (Stadol Injection) 2 mg Q4HPRN PRN IV SEVERE PAIN (7-10 PAIN SCALE) 05/19/25 07:30 Cancel Misoprostol (Cytotec) 50 mcg Q4HPRN PRN PO CERVICAL RIPENING 05/19/25 07:30 05/21/25 11:51 DC 05/20/25 07:43 50 MCG Lidocaine HCl (Xylocaine) 20 ml ONCE PRN IJ PERINEAL AREA DISCOMFORT 05/19/25 07:30 Cancel Ursodiol (Actigall) 300 mg BID PO 05/19/25 10:00 05/21/25 11:09 300 MG Oxytocin 500 ml @ 999 mls/hr Q31M ONCE IV 05/19/25 10:00 05/19/25 10:30 DC 05/21/25 08:39 999 MLS/HR Oxytocin 500 ml @ 125 mls/hr Q4H ONCE IV 05/19/25 10:30 05/19/25 14:29 DC 05/21/25 08:53 125 MLS/HR Oxytocin 1,000 ml @ 6 ml/hr Q24H IV 05/20/25 12:15 05/21/25 11:51 DC 05/20/25 15:00 6 ML/HR Terbutaline Sulfate (Brethine Inj) 0.25 mg ONCE PRN SC Uterine tachysystole 05/20/25 12:15 Cancel Naloxone HCl (Narcan) 0.2 mg PRN ONCE IV 05/20/25 12:15 05/20/25 12:16 Cancel Ephedrine Sulfate (ePHEDrine SULFATE) 10 mg PRN ONCE IV 05/20/25 12:15 05/21/25 11:51 DC 05/20/25 13:38 10 MG Fentanyl Citrate 100 mcg ONCE ONCE IV 05/20/25 12:15 05/21/25 11:51 DC 05/20/25 13:35 100 MCG Lidocaine HCl (Xylocaine-Pf 2% Injection) 10 ml ONCE ONCE IJ 05/20/25 12:15 05/21/25 11:51 DC 05/20/25 15:43 10 ML Cefazolin Sodium/ Dextrose 50 ml @ 50 mls/hr ONCE ONCE IV 05/20/25 13:00 05/20/25 13:59 DC 05/20/25 13:00 50 MLS/HR Cefazolin Sodium 50 ml @ 100 mls/hr Q8HR IV 05/20/25 21:00 05/21/25 11:51 DC Ropivacaine 100 ml @ STK-MED ONCE .ROUTE 05/20/25 12:52 05/21/25 11:51 DC 05/20/25 22:36 10 MLS/HR Naloxone HCl (Narcan) 0.2 mg PRN ONCE IV 05/20/25 13:15 05/20/25 13:16 Cancel Ephedrine Sulfate (ePHEDrine SULFATE) 10 mg PRN ONCE IV 05/20/25 13:15 05/21/25 11:51 DC 05/20/25 15:43 10 MG Lidocaine HCl (Xylocaine-Pf 2% Injection) 5 ml ONCE ONCE IJ 05/20/25 13:15 05/20/25 13:16 Cancel Lactated Ringer's 500 ml @ 500 mls/hr Q1H ONCE IV 05/20/25 13:15 05/20/25 14:14 Cancel Fentanyl/ Ropivacaine 200 ml @ 10 mls/hr UD EPI 05/20/25 13:15 05/22/25 13:14 Cancel Famotidine (Pepcid Injection) 20 mg ONCE ONCE IV 05/20/25 15:30 05/20/25 15:31 DC 05/20/25 15:42 20 MG Ondansetron HCl (Zofran) 4 mg Q8HPRN PRN IV NAUSEA / VOMITING 05/20/25 19:30 05/21/25 09:29 DC 05/20/25 19:57 4 MG Ropivacaine 100 ml @ ud STK-MED ONCE .ROUTE 05/20/25 19:57 05/20/25 19:58 Cancel Methylergonovine Maleate (Methergine) 0.2 mg ONCE ONCE IM 05/21/25 08:00 05/21/25 08:01 Cancel Methylergonovine Maleate (Methergine) STK-MED ONCE IM 05/21/25 08:17 05/21/25 08:18 Cancel Ibuprofen (Motrin Tablet) 600 mg Q6HP PRN PO MODERATE PAIN (4-6 PAIN SCALE) 05/21/25 09:00 05/21/25 17:33 600 MG Acetaminophen (Tylenol Tablet) 650 mg Q4HP PRN PO MILD PAIN (1-3 PAIN SCALE) 05/21/25 09:00 Ondansetron HCl (Zofran Po) 4 mg Q4HPRN PRN PO NAUSEA / VOMITING 05/21/25 09:00 Docusate Sodium (Colace Capsule) 200 mg HS PO 05/21/25 22:00 Assessment: 34yo now PPD#1 Acute blood loss anemia O positive Rh+ Rubella Immune GBS negative Plan: D/C home tomorrow Continue with care Activity: as tolerated, no heavy lifting and nothing in the vagina for 6 weeks vital signs Vital Sign Date Time Temp Pulse Resp B/P (MAP) Pulse Ox O2 Delivery O2 Flow Rate FiO2 05/21/25 19:20 98.2 67 16 126/58 (80) 97 98.2 05/21/25 19:00 Room Air medications Current Medications Medications Dose Ordered Sig/Reese Route Start Time Stop Time Status Last Admin Dose Admin Lactated Ringer's 1,000 ml @ 125 mls/hr Q8H IV 05/19/25 07:30 05/21/25 03:35 125 MLS/HR Penicillin G Potassium [id number] units/Dextrose 50 ml @ 100 mls/hr Q4H IV 05/19/25 12:00 Cancel Witch Rhianna 1 pad PRN PRN TOP 05/19/25 07:30 05/19/25 09:40 1 PAD Sodium Lauryl Sulfate 240 ml PRN PRN TOP 05/19/25 07:30 05/19/25 09:41 240 ML Benzocaine 1 applic PRN PRN TOP 05/19/25 07:30 05/19/25 09:41 1 APPLIC Butorphanol Tartrate 1 mg Q4HPRN PRN IV 05/19/25 07:30 Cancel Butorphanol Tartrate 2 mg Q4HPRN PRN IV 05/19/25 07:30 Cancel Lidocaine HCl 20 ml ONCE PRN IJ 05/19/25 07:30 Cancel Ursodiol 300 mg BID PO 05/19/25 10:00 05/21/25 11:09 300 MG Terbutaline Sulfate 0.25 mg ONCE PRN SC 05/20/25 12:15 Cancel Fentanyl/ Ropivacaine 200 ml @ 10 mls/hr UD EPI 05/20/25 13:15 05/22/25 13:14 Cancel Ibuprofen 600 mg Q6HP PRN PO 05/21/25 09:00 05/21/25 17:33 600 MG Acetaminophen 650 mg Q4HP PRN PO 05/21/25 09:00 Ondansetron HCl 4 mg Q4HPRN PRN PO 05/21/25 09:00 Docusate Sodium 200 mg HS PO 05/21/25 22:00 laboratory and microbiology Laboratory Tests 05/21/25 06:22 05/19/25 07:50 Test 05/21/25 06:22 Range/Units Serum Glucose 79 74-106 mg/dL Problems(with codes): (1) (normal spontaneous vaginal delivery) Plan discussed with: Spouse Visit Coding OBGYN Date of Service: May 21, 2025 Billing Provider: HEIDE FRAZIER CNM BELLY PACKER Common Visit Codes: [id number] OBS CARE (MOD) HEIDE FRAZIER [facility] 2024 21:18
[2025-05-21] MEDS: DOCUSATE SOD 100 MG CAP PO SCH (22:08)
[2025-05-21 23:20] VITALS: BP 109/61; PULSE 63; RESP 17; TEMP 98; O2SAT 97
[2025-05-22 03:10] VITALS: BP 116/59; PULSE 62; RESP 16; TEMP 98.3; O2SAT 98
--- NOTE | 2025-05-22 06:06 | DVHDS2 ---
Discharge Summary Discharge Summary Date of Admission: May 21, 2025 Date of Discharge: May 22, 2025 Discharge Diagnosis: Normal Spontaneous Vaginal delivery Brief History: Subjective: Patient is 34 y/o (4,0,0,4) ppd# 1 s/p Infant female 05/21/2025 @ 0818 IOL 37w5d for Cholestasis in Manual Removal of the placenta by Dr Montero QBL 200 Perineal: First Degree perineal laceration and repaired Problems: Cholestasis in [place] Speaker Multigravida Tolerating regular diet well. Ambulating and voiding well w/o feeling lightheaded or dizzy. Passing flatus but no BM yet. Breast feeding and Formula Feeding Contraceptive plan: Unknown Desires and requests to be discharged home today Objective Afebrile, VSS Vital Signs Date Time Temp Pulse Resp B/P (MAP) Pulse Ox O2 Delivery O2 Flow Rate FiO2 05/22/25 03:10 98.3 62 16 116/59 (78) 98 98.3 05/21/25 19:00 Room Air Chest: heart and lung sounds normal. Breasts: Nipples intact w/o cracks or soreness Abdomen: normal BS, soft, non-tender, no rebound or guarding, Fundus firm @ Umbilicus -1, lochia minimal Perineum:- no edema, or erythema, Extremities: no edema or tenderness Lochia - rubra with scant bleeding Labs Laboratory Tests Test 05/21/25 06:22 05/19/25 07:50 05/19/25 07:30 Range/Units Sodium Level 138 136-145 mmol/L Potassium Level 3.8 3.5-5.1 mmol/L Chloride Level 106 98-107 mmol/L Carbon Dioxide Level 21 20-31 mmol/L Anion Gap 11 5-15 Blood Urea Nitrogen 6 L 9-23 mg/dL Creatinine 0.72 0.550-1.02 mg/dL Glomerular Filtration Rate Calc 114 >90 mL/min BUN/Creatinine Ratio 8.3 L 10.0-20.0 Serum Glucose 79 74-106 mg/dL Calcium Level 8.8 8.7-10.4 mg/dL Total Bilirubin 0.9 0.2-1.0 mg/dL Aspartate Amino Transferase (AST) 63 H 13-40 U/L Alanine Aminotransferase (ALT) 119 H 7-40 U/L Alkaline Phosphatase 243 H 46-116 U/L Total Protein 5.7 5.7-8.2 g/dL Albumin 3.4 3.2-4.8 g/dL White Blood Count 6.2 4.4-10.8 10^3/uL Red Blood Count 4.28 4.0-5.20 10^6/uL Hemoglobin 13.6 12.2-16.2 g/dL Hematocrit 39.7 36.0-46.0 % Mean Corpuscular Volume 92.9 80.0-100.0 fL Mean Corpuscular Hemoglobin 31.8 28.0-32.0 pg Mean Corpuscular Hemoglobin Concent 34.2 32.0-36.0 g/dL Red Cell Distribution Width 14.3 11.8-14.3 % Platelet Count 153 140-450 10^3/uL Mean Platelet Volume 10.6 6.9-10.8 fL Neutrophils (%) (Auto) 58.8 37.0-80.0 % Lymphocytes (%) (Auto) 32.1 10.0-50.0 % Monocytes (%) (Auto) 6.3 0.0-12.0 % Eosinophils (%) (Auto) 2.1 0.0-7.0 % Basophils (%) (Auto) 0.7 0.0-2.0 % Neutrophils # (Auto) 3.6 1.6-8.6 10 ^3/uL Lymphocytes # (Auto) 2.0 0.4-5.4 10 ^3/uL Monocytes # (Auto) 0.4 0-1.3 10 ^3/uL Eosinophils # (Auto) 0.1 0-0.8 10 ^3/uL Basophils # (Auto) 0 0-0.2 10 ^3/uL Nucleated Red Blood Cells 0.1 % Prothrombin Time 9.3 9.3-11.8 sec Prothrombin Time INR 0.86 L 0.9-1.15 Activated Partial Thromboplast Time 27.5 24.5-34.5 SEC Treponema pallidum Antibody Non-reactive Negative Hepatitis C Antibody Negative Negative Urine Color Yellow Yellow Urine Clarity Clear Clear Urine pH 6.5 5.0-9.0 Urine Specific [place] 1.015 1.001-1.035 Urine Protein Negative Negative Urine Ketones Negative Negative Urine Blood Negative Negative /uL Urine Nitrite Negative Negative Urine Bilirubin Negative Negative Urine Urobilinogen 2 H Negative mg/dL Urine Leukocyte Esterase 3+ Negative /uL Urine RBC <1 0 - 4 /hpf Urine Microscopic WBC 4 0-5 /HPF Urine Squamous Epithelial Cells Few <5 /hpf Urine Bacteria Few H None Seen /hpf Urine Glucose Normal Normal mg/dL Urine Opiates Screen Neg NEGATIVE Urine Fentanyl Screen Neg NEGATIVE Urine Barbiturates Screen Neg NEGATIVE Urine Phencyclidine Screen Neg NEGATIVE Urine Amphetamines Screen Neg NEGATIVE Urine Benzodiazepines Screen Neg NEGATIVE Urine Cocaine Screen Neg NEGATIVE Urine Cannabinoids Screen Neg NEGATIVE Assessment/ Plan Blood Type: O Rh: Positive Antibody Negative Rubella: Immune Breast feeding and Formula feeding GBS Negative Hepatitis: Negative Pain control with oral medications Bowel regimen: Increase fluid intake and fiber in diet, Laxative PRN PP BCM Plan: Discharge plan: May discharge home later today if condition remains stable Daily assessment findings will determine when to discharge Infant will continue stay due to clearance from the jig grinder set up operator due to jaundice Discharge Disposition: Home Discharge Instructions Discharge Information / Summary Diet: Routine regular diet rich in fiber, protein, iron and vitamin C with adequate fluid intake. Activity: Unrestricted. Advance as tolerated. Balance activities with rest periods No heavy lifting, pushing or straining. Pelvic rest x 6weeks Follow up with OB Provider in 1 week Medications: Ibuprofen 600mg every 6 hours as needed for pain. Continue Vitamin and iron Follow up with OB Provider in 1 week Instructions: self care instructions given. emergency signs and symptoms including but not limited to pre-eclampsia precautions and signs of infection, PPH & of PPD reviewed with patient. Follow up with OB Provider in 1 week Medications Current Medications Medications (Trade) Dose Ordered Sig/Reese Route PRN Reason Start Time Stop Time Status Last Admin Acetaminophen (Tylenol Tablet) 650 mg Q4HP PRN PO MILD PAIN (1-3 PAIN SCALE) 05/21/25 09:00 Docusate Sodium (Colace Capsule) 200 mg HS PO 05/21/25 22:00 05/21/25 22:08 Ibuprofen (Motrin Tablet) 600 mg Q6HP PRN PO MODERATE PAIN (4-6 PAIN SCALE) 05/21/25 09:00 05/22/25 02:04 Ondansetron HCl (Zofran Po) 4 mg Q4HPRN PRN PO NAUSEA / VOMITING 05/21/25 09:00 Discharge Care Plan Problem Pain, Risk for injury/Safety Goals Pain relieved, Pain controlled Know Disease Process, Know Self care, Know Condition, Know Treatments, Know F/U care Instructions Take Rx medications, Notify MD of any issues, Keep list of meds w/ you See pt D/C handouts Risk factors Visit Coding OBGYN Date of Service: May 22, 2025 Billing Provider: HEIDE FRAZIER CNM SERVICE TESTER Common Visit Codes: [id number] OBS CARE (MOD) [facility] [place] [facility]
[2025-05-22 07:00] VITALS: BP 115/70; PULSE 56; RESP 18; TEMP 97.8; O2SAT 97
[2025-05-22] MEDS ORDERED: DOCU-94 PO (10:28)
[2025-05-22] MEDS ORDERED: IBU600T PO (10:28)
== END 2025-05-22 13:05 | disposition home or self-care (01) | DRG 560 ==
LOC: OBSVTOIN 07:10 → LDRP 07:10
PROVIDERS: ADMIT Obstetrics & Gynecology; ATTEND Obstetrics & Gynecology
PROC: 10E0XZZ Delivery of Products of Conception, External Approach (ICD-10-PCS; principal; 2025-05-21)
PROC: 3E0DXGC Introduction of Other Therapeutic Substance into Mouth and Pharynx, External Approach (ICD-10-PCS; 2025-05-21)
PROC: 0HQ9XZZ Repair Perineum Skin, External Approach (ICD-10-PCS; 2025-05-21)
PROC: 3E0R3BZ Introduction of Anesthetic Agent into Spinal Canal, Percutaneous Approach (ICD-10-PCS; 2025-05-21)
PROC: 00HU33Z Insertion of Infusion Device into Spinal Canal, Percutaneous Approach (ICD-10-PCS; 2025-05-21)
DX: O26.643 Intrahepatic cholestasis of pregnancy, third trimester (principal); Z37.0 Single live birth; K76.89 Other specified diseases of liver; D62 Acute posthemorrhagic anemia; O70.0 First degree perineal laceration during delivery; O99.02 Anemia complicating childbirth; Z3A.37 37 weeks gestation of pregnancy
CPT/HCPCS: 36415; 59025; 59200; 59409; 62282; 80053; 80307; 81001; 81002; 85025; 85610; 85730; 86780; 86803; 86850; 86900; 86901; 94760; 94762; 96360; 96361; 96365; 96366; 96374; 96375; A4344; G0378; J2405; J2590; J3490; J7060